=== PATIENT | female | born 1970 | race Caucasian/White ===

== ENCOUNTER 2020-07-26 09:29 | Emergency (ER) | payer MEDICARE, OTHER ==
[~2020-07-26 09:29] MED LIST: 3IN1 COMMODE; BENTYL10 MG PO; CIPRO500 MG PO; CYMBALTA60 MG PO; DILAUDID2 M1 PO; DILAUDID2 MG PO; DULOXETINE HCL60 MG PO; FENTANYL 25 M1 PATCH TD; FENTANYL TD; GABAPENTIN300 MG PO; GEMFIBROZIL600 MG PO; HUMALOG100 UNIT/1 SC; HYDROMORPHONE HC2 MG PO; KEFLEX250 MG PO; LEVAQUIN500 MG PO; LEVAQUIN750 MG PO; LEVEMIR DO100 UNITS/ SC; LOPID600 MG PO; LOPRESSOR50 MG PO; MAG-OXIDE 400M400 MG PO; MELOXICAM15 MG PO; NEURONTIN300 MG PO; NEXIUM40 MG PO; NOVOLOG DO100 UNIT/M SC; NOVOLOG DO100 UNIT/M SQ; OMEPRAZOLE40 MG PO; PHENERGAN25 M1 PO; PRILOSEC20 MG PO; PROMETHEGA12.5 MG/SU PR; PYRIDIUM100 MG PO; TRESIBA FL100 UNIT/1 SC; VASCEPA1 GM PO; ZOLOFT100 MG PO; [UNRECOGNIZED DRUG - OTHER] SC
[2020-07-26 10:11] LABS: BASOPHIL 0.3 % (0-2); EOSINOPHIL 0.4 % (0-5); HCT 39.4 % (37.0-47.0); HGB 12.6 g/dl (12.5-16.0); LYMPHOCYTE 7.9 % (15-48); MCH 28.3 pg (25.0-31.0); MCV 88.3 fL (78.0-100.0); MONOCYTE 7.2 % (0-12); MPV 10.2 fL (6.0-9.5); NEUTROPHIL 83.8 % (41-80); NRBC 0; PLT 156 K/uL (150-400); RBC 4.46 M/uL (4.20-5.40); RDW 13.1 % (11.5-14.0); WBC 11.7 K/uL (4.0-10.5)
[2020-07-26 10:32] LABS: ALBUMIN 3.5 g/dL (3.4-5.0); BILIRUBIN - TOTAL 0.7 mg/dL (0.2-1.0); CREATININE 0.56 mg/dL (0.51-0.95); GLOBULIN (CALCULATION) 4.4 g/dL; POTASSIUM 4.3 mmol/L (3.5-5.1); TOTAL PROTEIN 7.9 g/dL (6.4-8.2)
[2020-07-26] MEDS ORDERED: PROMETHAZINE HC25 MG PR (11:16)
== END 2020-07-26 11:52 | disposition home or self-care (01) ==
LOC: FER 09:29
PROVIDERS: Emergency Medicine
DX: R10.13 Epigastric pain (principal); R11.2 Nausea with vomiting, unspecified; E11.9 Type 2 diabetes mellitus without complications; Z87.19 Personal history of other diseases of the digestive system; Z90.49 Acquired absence of other specified parts of digestive tract; Z88.4 Allergy status to anesthetic agent; Z20.822 Contact with and (suspected) exposure to COVID-19
CPT/HCPCS: 36415; 80053; 82150; 83690; 85025; J0780; J1170; J1885; J2270; J2550; J7030; U0002

== ENCOUNTER 2020-10-08 19:37 | Inpatient (IN) | payer MEDICARE, OTHER ==
[~2020-10-08] VITALS: Ht 160 cm; Wt 79.0 kg
[~2020-10-08 19:37] MED LIST changes: +PROMETHAZINE HC25 MG PR
[2020-10-08 20:37] LABS: BASOPHIL 0.9 % (0-2); EOSINOPHIL 1.7 % (0-5); HCT 39.4 % (37.0-47.0); HGB 12.3 g/dl (12.5-16.0); LYMPHOCYTE 37.9 % (15-48); MCH 28.9 pg (25.0-31.0); MCHC 31.2 g/dL (32.0-36.0); MCV 92.5 fL (78.0-100.0); MONOCYTE 7.2 % (0-12); MPV 10.2 fL (6.0-9.5); NEUTROPHIL 51.3 % (41-80); NRBC 0; PLT 227 K/uL (150-400); RBC 4.26 M/uL (4.20-5.40); RDW 12.8 % (11.5-14.0); WBC 10.1 K/uL (4.0-10.5)
[2020-10-08 20:38] LABS: BILIRUBIN NEGATIVE (NEGATIVE); BLOOD NEGATIVE Ery/uL (NEGATIVE); CLARITY CLEAR (CLEAR); COLOR YELLOW (YELLOW); GLUCOSE (U) 3+ mg/dL (NORMAL); LEUKOCYTES NEGATIVE Leu/uL (NEGATIVE); NITRITE NEGATIVE (NEGATIVE); PROTEIN NEGATIVE (NEGATIVE); UROBILINOGEN 0.2 mg/dL (0.2-1.0); pH 5.5 (5.0-9.0)
[2020-10-08 20:50] LABS: ALBUMIN 3.4 g/dL (3.4-5.0); BILIRUBIN - TOTAL 0.3 mg/dL (0.2-1.0); BUN/CREAT RATIO (CALC) 15.3 RATIO; CREATININE 0.72 mg/dL (0.51-0.95); GLOBULIN (CALCULATION) 4.1 g/dL; POTASSIUM 4.9 mmol/L (3.5-5.1); TOTAL PROTEIN 7.5 g/dL (6.4-8.2)
[2020-10-08 20:58] LABS: LACTIC ACID 6.1 mmol/L (0.4-1.9)
[2020-10-09] MEDS ORDERED: JARDIANCE25 MG PO (02:02)
[2020-10-09] MEDS ORDERED: METFORMIN HCL500 MG PO (02:02)
[2020-10-09 02:24] LABS: CORONAVIRUS 2019 SARS-COV-2 NEGATIVE (NEGATIVE); INFLUENZA A NAA NEGATIVE (NEGATIVE)
[2020-10-09 06:28] LABS: BASOPHIL 0.8 % (0-2); EOSINOPHIL 2.3 % (0-5); HCT 37.1 % (37.0-47.0); HGB 11.5 g/dl (12.5-16.0); LYMPHOCYTE 30.2 % (15-48); MCH 29.1 pg (25.0-31.0); MCV 93.9 fL (78.0-100.0); MONOCYTE 7.1 % (0-12); NEUTROPHIL 58.8 % (41-80); NRBC 0; PLT 186 K/uL (150-400); RBC 3.95 M/uL (4.20-5.40); RDW 12.9 % (11.5-14.0); WBC 8.9 K/uL (4.0-10.5)
[2020-10-09 06:54] LABS: ALBUMIN 3.1 g/dL (3.4-5.0); BILIRUBIN - TOTAL 0.3 mg/dL (0.2-1.0); CREATININE 0.69 mg/dL (0.51-0.95); GLOBULIN (CALCULATION) 3.7 g/dL; POTASSIUM 4.7 mmol/L (3.5-5.1); TOTAL PROTEIN 6.8 g/dL (6.4-8.2)
[2020-10-10 05:26] LABS: BASOPHIL 0.7 % (0-2); EOSINOPHIL 2.1 % (0-5); HCT 33.4 % (37.0-47.0); LYMPHOCYTE 30.7 % (15-48); MCH 29.3 pg (25.0-31.0); MCHC 31.1 g/dL (32.0-36.0); MCV 94.1 fL (78.0-100.0); MONOCYTE 5.8 % (0-12); MPV 9.5 fL (6.0-9.5); NEUTROPHIL 59.9 % (41-80); NRBC 0; PLT 148 K/uL (150-400); RBC 3.55 M/uL (4.20-5.40); RDW 12.6 % (11.5-14.0); WBC 8.4 K/uL (4.0-10.5)
[2020-10-10 05:27] LABS: HGB 10.4 g/dl (12.5-16.0)
[2020-10-10 05:43] LABS: BUN/CREAT RATIO (CALC) 17.7 RATIO; CREATININE 0.62 mg/dL (0.51-0.95); MAGNESIUM 1.6 mg/dL (1.8-2.4); POTASSIUM 4.5 mmol/L (3.5-5.1)
[2020-10-11 04:52] LABS: BASOPHIL 0.9 % (0-2); EOSINOPHIL 4.4 % (0-5); HCT 34.8 % (37.0-47.0); LYMPHOCYTE 34.5 % (15-48); MCH 29.4 pg (25.0-31.0); MCHC 31.6 g/dL (32.0-36.0); MONOCYTE 6.7 % (0-12); MPV 9.4 fL (6.0-9.5); NEUTROPHIL 51.5 % (41-80); NRBC 0; PLT 147 K/uL (150-400); RBC 3.74 M/uL (4.20-5.40); RDW 12.4 % (11.5-14.0); WBC 6.5 K/uL (4.0-10.5)
[2020-10-11 05:09] LABS: BUN/CREAT RATIO (CALC) 15.8 RATIO; CREATININE 0.57 mg/dL (0.51-0.95); MAGNESIUM 1.4 mg/dL (1.8-2.4); POTASSIUM 4.4 mmol/L (3.5-5.1)
[2020-10-13 06:53] LABS: BASOPHIL 0.9 % (0-2); EOSINOPHIL 6.7 % (0-5); HCT 33.4 % (37.0-47.0); HGB 10.8 g/dl (12.5-16.0); LYMPHOCYTE 33.5 % (15-48); MCH 29.2 pg (25.0-31.0); MCHC 32.3 g/dL (32.0-36.0); MCV 90.3 fL (78.0-100.0); MONOCYTE 7.1 % (0-12); MPV 9.2 fL (6.0-9.5); NEUTROPHIL 49.6 % (41-80); NRBC 0; PLT 159 K/uL (150-400); RDW 12.7 % (11.5-14.0); WBC 5.5 K/uL (4.0-10.5)
[2020-10-13 07:23] LABS: ALBUMIN 2.9 g/dL (3.4-5.0); BILIRUBIN - TOTAL 0.4 mg/dL (0.2-1.0); BUN/CREAT RATIO (CALC) 11.8 RATIO; CREATININE 0.51 mg/dL (0.51-0.95); GLOBULIN (CALCULATION) 3.7 g/dL; POTASSIUM 4.1 mmol/L (3.5-5.1); TOTAL PROTEIN 6.6 g/dL (6.4-8.2)
[2020-10-14 05:07] LABS: BASOPHIL 0.8 % (0-2); EOSINOPHIL 5.2 % (0-5); HCT 31.9 % (37.0-47.0); HGB 10.3 g/dl (12.5-16.0); LYMPHOCYTE 43.2 % (15-48); MCH 29.5 pg (25.0-31.0); MCHC 32.3 g/dL (32.0-36.0); MCV 91.4 fL (78.0-100.0); MONOCYTE 6.4 % (0-12); MPV 9.4 fL (6.0-9.5); NEUTROPHIL 42.8 % (41-80); NRBC 0; PLT 136 K/uL (150-400); RBC 3.49 M/uL (4.20-5.40); RDW 12.9 % (11.5-14.0)
[2020-10-14 05:22] LABS: ALBUMIN 2.8 g/dL (3.4-5.0); BILIRUBIN - TOTAL 0.4 mg/dL (0.2-1.0); BUN/CREAT RATIO (CALC) 8.3 RATIO; CREATININE 0.48 mg/dL (0.51-0.95); GLOBULIN (CALCULATION) 3.3 g/dL; MAGNESIUM 1.2 mg/dL (1.8-2.4); POTASSIUM 3.8 mmol/L (3.5-5.1); TOTAL PROTEIN 6.1 g/dL (6.4-8.2)
[2020-10-14] MEDS ORDERED: ERY-TAB250 MG PO (14:42)
== END 2020-10-14 16:42 | disposition home or self-care (01) | DRG 74 ==
LOC: FER 19:37 → FMS 10-09 00:47
PROVIDERS: Emergency Medicine; Internal Medicine; Nurse Practitioner; Nurse Practitioner Family; Student in an Organized Health Care Education/Training Program; ADMIT Internal Medicine
PROC: 0DB38ZX Excision of Lower Esophagus, Via Natural or Artificial Opening Endoscopic, Diagnostic (ICD-10-PCS; 2020-10-13)
PROC: 0DB98ZX Excision of Duodenum, Via Natural or Artificial Opening Endoscopic, Diagnostic (ICD-10-PCS; principal; 2020-10-13 10:00)
PROC: 0DB68ZX Excision of Stomach, Via Natural or Artificial Opening Endoscopic, Diagnostic (ICD-10-PCS; 2020-10-13 10:00)
DX: E10.43 Type 1 diabetes mellitus with diabetic autonomic (poly)neuropathy (principal); K86.1 Other chronic pancreatitis; K31.84 Gastroparesis; M79.7 Fibromyalgia; D50.9 Iron deficiency anemia, unspecified; I10 Essential (primary) hypertension; Z20.822 Contact with and (suspected) exposure to COVID-19; E78.5 Hyperlipidemia, unspecified; E10.65 Type 1 diabetes mellitus with hyperglycemia; E86.0 Dehydration; K31.7 Polyp of stomach and duodenum; K29.80 Duodenitis without bleeding; K83.8 Other specified diseases of biliary tract; K44.9 Diaphragmatic hernia without obstruction or gangrene; J45.909 Unspecified asthma, uncomplicated; Z88.4 Allergy status to anesthetic agent; Z90.49 Acquired absence of other specified parts of digestive tract; Z93.0 Tracheostomy status; Z95.828 Presence of other vascular implants and grafts; Z87.891 Personal history of nicotine dependence
CPT/HCPCS: 36415; 71045; 74018; 74240; 80048; 80053; 81003; 82009; 82150; 82962; 83036; 83605; 83690; 83735; 84145; 85025; 87040; 88305; 88341; 88342; C9113; G0378; J0780; J1170; J1364; J1642; J1650; J2250; J2270; J2405; J2543; J2550; J2704; J3475; J3480; J7030; J7120; Q0169; Q9967; U0002

== ENCOUNTER 2020-10-23 21:02 | Day surgery (SDCO) | payer MEDICARE, OTHER ==
[~2020-10-23 21:02] MED LIST changes: +ERY-TAB250 MG PO; +JARDIANCE25 MG PO; +METFORMIN HCL500 MG PO
[2020-10-23 22:10] LABS: BASOPHIL 1.8 % (0-2); BILIRUBIN NEGATIVE (NEGATIVE); BLOOD NEGATIVE Ery/uL (NEGATIVE); CLARITY CLEAR (CLEAR); COLOR YELLOW (YELLOW); EOSINOPHIL 2.2 % (0-5); GLUCOSE (U) 3+ mg/dL (NORMAL); HGB 12.5 g/dl (12.5-16.0); LEUKOCYTES NEGATIVE Leu/uL (NEGATIVE); LYMPHOCYTE 35.5 % (15-48); MCHC 33.8 g/dL (32.0-36.0); MCV 88.7 fL (78.0-100.0); MONOCYTE 10.7 % (0-12); MPV 10.9 fL (6.0-9.5); NEUTROPHIL 48.9 % (41-80); NITRITE NEGATIVE (NEGATIVE); PLT 230 K/uL (150-400); PROTEIN NEGATIVE (NEGATIVE); RBC 4.17 M/uL (4.20-5.40); RDW 13.2 % (11.5-14.0); UROBILINOGEN 0.2 mg/dL (0.2-1.0); WBC 10.3 K/uL (4.0-10.5); pH 5.5 (5.0-9.0)
[2020-10-23 22:20] LABS: INR 0.92 (0.9-1.2); PROTHROMBIN TIME 11.7 SECONDS (11.4-13.6); PTT 24.4 SECONDS (22.2-34.7)
[2020-10-23 22:33] LABS: IRON % SATURATION 11.7 %SAT (20-50)
[2020-10-23 22:38] LABS: LACTIC ACID 3.4 mmol/L (0.4-1.9)
[2020-10-23 22:41] LABS: ALBUMIN 3.8 g/dL (3.4-5.0); BILIRUBIN - TOTAL 0.2 mg/dL (0.2-1.0); BUN/CREAT RATIO (CALC) 15.5 RATIO; CREATININE 0.97 mg/dL (0.51-0.95); MAGNESIUM 1.8 mg/dL (1.8-2.4); POTASSIUM 4.2 mmol/L (3.5-5.1); TOTAL PROTEIN 7.8 g/dL (6.4-8.2)
[2020-10-24] MEDS ORDERED: CYMBALTA 30MG C30 MG PO (02:15)
[2020-10-24] MEDS ORDERED: JARDIANCE25 MG PO (02:16)
[2020-10-24] MEDS ORDERED: NEURONTIN300 MG PO (02:16)
[2020-10-24] MEDS ORDERED: VASCEPA1 GM PO (02:17)
[2020-10-24] MEDS ORDERED: NOVOLOG DO100 UNIT/M SC (02:18)
[2020-10-24] MEDS ORDERED: METFORMIN HCL500 MG PO (02:19)
--- NOTE | 2020-10-24 04:38 | NUR ---
0315 R CHEST PAC ACCESSED BY MELANIE DUKESANVIL SEATING PRESS OPERATOR. NO BLOOD RETURN AFTER ACCESS.
[2020-10-24 07:20] LABS: BASOPHIL 1.1 % (0-2); EOSINOPHIL 3.2 % (0-5); HCT 35.7 % (37.0-47.0); HGB 11.4 g/dl (12.5-16.0); LYMPHOCYTE 46.4 % (15-48); MCH 29.2 pg (25.0-31.0); MCHC 31.9 g/dL (32.0-36.0); MCV 91.5 fL (78.0-100.0); MONOCYTE 9.3 % (0-12); MPV 10.2 fL (6.0-9.5); NEUTROPHIL 39.2 % (41-80); NRBC 0; PLT 189 K/uL (150-400); RDW 13.2 % (11.5-14.0); WBC 6.2 K/uL (4.0-10.5)
[2020-10-24 07:40] LABS: ALBUMIN 3.2 g/dL (3.4-5.0); BILIRUBIN - TOTAL 0.3 mg/dL (0.2-1.0); BUN/CREAT RATIO (CALC) 17.3 RATIO; CREATININE 0.75 mg/dL (0.51-0.95); GLOBULIN (CALCULATION) 3.4 g/dL; POTASSIUM 4.3 mmol/L (3.5-5.1); TOTAL PROTEIN 6.6 g/dL (6.4-8.2)
== END 2020-10-24 12:38 | disposition home or self-care (01) ==
LOC: FER 21:02 → FMS 10-24 00:52
PROVIDERS: Emergency Medicine; Nurse Practitioner; ADMIT Internal Medicine
DX: E10.43 Type 1 diabetes mellitus with diabetic autonomic (poly)neuropathy (principal); K31.84 Gastroparesis; K86.1 Other chronic pancreatitis; M79.7 Fibromyalgia; D50.9 Iron deficiency anemia, unspecified; I10 Essential (primary) hypertension; E78.5 Hyperlipidemia, unspecified; E86.0 Dehydration; E66.3 Overweight; Z68.28 Body mass index [BMI] 28.0-28.9, adult; Z87.891 Personal history of nicotine dependence; Z79.4 Long term (current) use of insulin; Z79.899 Other long term (current) drug therapy; Z88.4 Allergy status to anesthetic agent; Z20.822 Contact with and (suspected) exposure to COVID-19
CPT/HCPCS: 36415; 80053; 81003; 83540; 83550; 83605; 83690; 83735; 84145; 84443; 84484; 85025; 85610; 85730; C9113; G0378; J1170; J1650; J2405; J2550; J7030; Q9967; U0002

== ENCOUNTER 2020-11-29 21:03 | Inpatient (IN) | payer MEDICARE, OTHER ==
[~2020-11-29] VITALS: Ht 160 cm; Wt 77.2 kg
[~2020-11-29 21:03] MED LIST changes: +CYMBALTA 30MG C30 MG PO
[2020-11-29 21:46] LABS: BASOPHIL 0.6 % (0-2); EOSINOPHIL 1.4 % (0-5); HCT 33.8 % (37.0-47.0); HGB 11.7 g/dl (12.5-16.0); LYMPHOCYTE 37.8 % (15-48); MCH 30.5 pg (25.0-31.0); MCHC 34.6 g/dL (32.0-36.0); MONOCYTE 7.9 % (0-12); NEUTROPHIL 51.7 % (41-80); NRBC 0; PLT 180 K/uL (150-400); RBC 3.84 M/uL (4.20-5.40); RDW 12.3 % (11.5-14.0); WBC 6.3 K/uL (4.0-10.5)
[2020-11-29 22:10] LABS: LACTIC ACID 1.9 mmol/L (0.4-1.9)
[2020-11-29 22:14] LABS: ALBUMIN 3.2 g/dL (3.4-5.0); BILIRUBIN - TOTAL 0.5 mg/dL (0.2-1.0); BUN/CREAT RATIO (CALC) 14.5 RATIO; CREATININE 0.69 mg/dL (0.51-0.95); GLOBULIN (CALCULATION) 4.2 g/dL; POTASSIUM 4.1 mmol/L (3.5-5.1); TOTAL PROTEIN 7.4 g/dL (6.4-8.2)
[2020-11-30] MEDS ORDERED: NEURONTIN300 MG PO (03:15)
[2020-11-30] MEDS ORDERED: PRILOSEC20 MG PO (03:15)
[2020-11-30] MEDS ORDERED: METFORMIN HCL500 MG PO (03:16)
[2020-11-30] MEDS ORDERED: PHENERGAN25 M1 PO (03:17)
[2020-11-30] MEDS ORDERED: NOVOLOG VI100 UNIT/1 SC (03:18)
[2020-11-30] MEDS ORDERED: CYMBALTA 30MG C30 MG PO (03:18)
[2020-11-30] MEDS ORDERED: TOPROL XL 50 MG50 MG PO (03:19)
[2020-11-30] MEDS ORDERED: JARDIANCE25 MG PO (03:20)
--- NOTE | 2020-11-30 03:25 | NUR ---
0240 PT RECIEVED ADMIT FROM ED. PT DROWSY. PT ORIENTED TO CALL LIGHT. PT INSTRUCTED TO CALL FOR ASSISTANCE BEFORE GETTING OOB. VSS.
[2020-11-30 06:38] LABS: BASOPHIL 0.4 % (0-2); EOSINOPHIL 0.5 % (0-5); HCT 33.6 % (37.0-47.0); HGB 10.8 g/dl (12.5-16.0); LYMPHOCYTE 17.5 % (15-48); MCH 29.1 pg (25.0-31.0); MCHC 32.1 g/dL (32.0-36.0); MCV 90.6 fL (78.0-100.0); MONOCYTE 6.6 % (0-12); MPV 9.7 fL (6.0-9.5); NEUTROPHIL 74.5 % (41-80); NRBC 0; PLT 149 K/uL (150-400); RBC 3.71 M/uL (4.20-5.40); RDW 12.6 % (11.5-14.0); WBC 7.4 K/uL (4.0-10.5)
[2020-11-30 07:05] LABS: TOTAL CELL COUNT 100
[2020-11-30 07:10] LABS: EOSINOPHIL(M) 1 % (0-5); LYMPHOCYTE(M) 26 % (15-48); MONOCYTE(M) 10 % (0-12); NEUTROPHILS(M) 64 % (41-80); PLATELET ESTIMATE NORMAL; PLATELET MORPHOLOGY NORMAL
[2020-11-30 07:16] LABS: BUN/CREAT RATIO (CALC) 16.7 RATIO; CREATININE 0.54 mg/dL (0.51-0.95); MAGNESIUM 1.8 mg/dL (1.8-2.4); POTASSIUM 4.3 mmol/L (3.5-5.1)
[2020-11-30 10:30] LABS: RETICULOCYTE COUNT 1.8 % (1.0-2.0)
[2020-11-30 10:54] LABS: BILIRUBIN NEGATIVE (NEGATIVE); BLOOD TRACE-INTACT Ery/uL (NEGATIVE); CLARITY CLEAR (CLEAR); COLOR YELLOW (YELLOW); GLUCOSE (U) 3+ mg/dL (NORMAL); LEUKOCYTES NEGATIVE Leu/uL (NEGATIVE); NITRITE NEGATIVE (NEGATIVE); PROTEIN NEGATIVE (NEGATIVE); SPECIFIC GRAVITY 1.015 (1.001-1.030); UROBILINOGEN 0.2 mg/dL (0.2-1.0)
[2020-11-30 11:07] LABS: BACTERIA TRACE; URINARY WBC RARE; YEAST PRESENT
[2020-11-30 11:15] LABS: FOLIC ACID (SERUM) 16.3 ng/mL (8.6-58.9)
[2020-11-30 11:22] LABS: IRON % SATURATION 10.2 %SAT (20-50)
[2020-12-01 06:10] LABS: HCT 31.3 % (37.0-47.0); HGB 9.9 g/dl (12.5-16.0); MCH 29.3 pg (25.0-31.0); MCHC 31.6 g/dL (32.0-36.0); MCV 92.6 fL (78.0-100.0); MPV 9.9 fL (6.0-9.5); RBC 3.38 M/uL (4.20-5.40); RDW 12.3 % (11.5-14.0); WBC 5.6 K/uL (4.0-10.5)
[2020-12-01 06:23] LABS: BUN/CREAT RATIO (CALC) 14.3 RATIO; CREATININE 0.42 mg/dL (0.51-0.95); POTASSIUM 3.5 mmol/L (3.5-5.1)
[2020-12-01 06:28] LABS: MAGNESIUM 1.4 mg/dL (1.8-2.4)
[2020-12-02 08:32] LABS: ALBUMIN 2.9 g/dL (3.4-5.0); BILIRUBIN - TOTAL 0.6 mg/dL (0.2-1.0); BUN/CREAT RATIO (CALC) 12.8 RATIO; CREATININE 0.47 mg/dL (0.51-0.95); GLOBULIN (CALCULATION) 4.2 g/dL; MAGNESIUM 1.5 mg/dL (1.8-2.4); PHOSPHORUS 2.3 mg/dL (2.6-4.7); POTASSIUM 4.8 mmol/L (3.5-5.1); TOTAL PROTEIN 7.1 g/dL (6.4-8.2)
--- NOTE | 2020-12-02 18:55 | NUR ---
SPOKE TO PHARMACY ABOUT PUSHING IV PHENERGAN WITH RUNNING FLUIDS INSTEAD OF PIGGYBACK AND STATED OK
[2020-12-03 06:26] LABS: BUN/CREAT RATIO (CALC) 11.5 RATIO; CREATININE 0.52 mg/dL (0.51-0.95); MAGNESIUM 1.3 mg/dL (1.8-2.4); PHOSPHORUS 2.7 mg/dL (2.6-4.7); POTASSIUM 4.8 mmol/L (3.5-5.1)
--- NOTE | 2020-12-03 15:25 | NUR ---
12/03/20 Ms. Winter and her son share a home together. Ms. Winter reports that her son works 3rd shift and is frequently out of the home. She reports to be independent in the home and does not use DME. - Ms. Winter is under the care of Dr. Wheeler. She reports to have transportation to treatment. - Ms. Winter is supported by [facility]. She states she is able to meet her financial obligations. - Ms. Winter was provided with an [employer] brochure and name of Courtney Lawson for transportation assistance if needed.
[2020-12-04 06:16] LABS: BASOPHIL 1.1 % (0-2); EOSINOPHIL 5.1 % (0-5); HCT 34.4 % (37.0-47.0); HGB 10.9 g/dl (12.5-16.0); LYMPHOCYTE 33.3 % (15-48); MCH 28.7 pg (25.0-31.0); MCHC 31.7 g/dL (32.0-36.0); MCV 90.5 fL (78.0-100.0); MONOCYTE 8.5 % (0-12); MPV 9.2 fL (6.0-9.5); NEUTROPHIL 48.8 % (41-80); NRBC 0; PLT 162 K/uL (150-400); RDW 12.6 % (11.5-14.0); WBC 5.3 K/uL (4.0-10.5)
[2020-12-04 06:39] LABS: BUN/CREAT RATIO (CALC) 12.8 RATIO; CREATININE 0.47 mg/dL (0.51-0.95); MAGNESIUM 1.3 mg/dL (1.8-2.4); POTASSIUM 4.1 mmol/L (3.5-5.1)
[2020-12-04] MEDS ORDERED: NORCO 5-325 TA1 EACH PO (13:48)
== END 2020-12-04 15:19 | disposition home or self-care (01) | DRG 74 ==
LOC: FER 21:03 → FMS 11-30 01:54
PROVIDERS: Allergy & Immunology; Emergency Medicine Emergency Medical Services; Internal Medicine; Student in an Organized Health Care Education/Training Program; ADMIT Internal Medicine
DX: E11.43 Type 2 diabetes mellitus with diabetic autonomic (poly)neuropathy (principal); K86.1 Other chronic pancreatitis; N17.9 Acute kidney failure, unspecified; E83.42 Hypomagnesemia; K31.84 Gastroparesis; E86.0 Dehydration; E11.65 Type 2 diabetes mellitus with hyperglycemia; D3A.092 Benign carcinoid tumor of the stomach; I10 Essential (primary) hypertension; D50.9 Iron deficiency anemia, unspecified; M79.7 Fibromyalgia; Z20.822 Contact with and (suspected) exposure to COVID-19; E78.5 Hyperlipidemia, unspecified; E83.39 Other disorders of phosphorus metabolism; E53.8 Deficiency of other specified B group vitamins; Z90.49 Acquired absence of other specified parts of digestive tract; Z98.890 Other specified postprocedural states; Z95.828 Presence of other vascular implants and grafts; Z91.14 Patient's other noncompliance with medication regimen; Z88.4 Allergy status to anesthetic agent; Z87.891 Personal history of nicotine dependence; Z79.4 Long term (current) use of insulin; Z79.899 Other long term (current) drug therapy
CPT/HCPCS: 36415; 73564; 73610; 74022; 80048; 80053; 81001; 82570; 82607; 82746; 82962; 83036; 83497; 83540; 83550; 83605; 83690; 83735; 84100; 85025; 94010; 94760; C9113; J1170; J1364; J1642; J1650; J2550; J2916; J3420; J3475; J3480; J7030; J7050; Q0162; U0002

== ENCOUNTER 2020-12-07 13:50 | Inpatient (IN) | payer MEDICARE, OTHER ==
[~2020-12-07] VITALS: Ht 160 cm; Wt 69.1 kg
[~2020-12-07 13:50] MED LIST changes: +NORCO 5-325 TA1 EACH PO; +NOVOLOG VI100 UNIT/1 SC; +TOPROL XL 50 MG50 MG PO
[2020-12-07 14:47] LABS: BASOPHIL 0.5 % (0-2); EOSINOPHIL 0.1 % (0-5); HCT 36.8 % (37.0-47.0); HGB 11.7 g/dl (12.5-16.0); LYMPHOCYTE 10.6 % (15-48); MCH 29.4 pg (25.0-31.0); MCHC 31.8 g/dL (32.0-36.0); MCV 92.5 fL (78.0-100.0); MONOCYTE 10.3 % (0-12); MPV 10.1 fL (6.0-9.5); NEUTROPHIL 77.6 % (41-80); NRBC 0; PLT 161 K/uL (150-400); RBC 3.98 M/uL (4.20-5.40); RDW 13.4 % (11.5-14.0); WBC 18.5 K/uL (4.0-10.5)
[2020-12-07 15:00] LABS: INR 1.27 (0.9-1.2); PROTHROMBIN TIME 15.1 SECONDS (11.4-13.6)
[2020-12-07 15:02] LABS: D-DIMER 1.11 ug/mLFEU (0.00-0.41)
[2020-12-07 15:07] LABS: ALBUMIN 3.6 g/dL (3.4-5.0); BILIRUBIN - TOTAL 1.1 mg/dL (0.2-1.0); BUN/CREAT RATIO (CALC) 17.6 RATIO; CREATININE 0.68 mg/dL (0.51-0.95); GLOBULIN (CALCULATION) 4.3 g/dL; MAGNESIUM 1.7 mg/dL (1.8-2.4); POTASSIUM 3.6 mmol/L (3.5-5.1); TOTAL PROTEIN 7.9 g/dL (6.4-8.2)
[2020-12-07 15:28] LABS: LACTIC ACID 1.5 mmol/L (0.4-1.9)
--- NOTE | 2020-12-07 18:35 | NUR ---
RECEIVED FROM [employer] [employer]. REPORT FROM BOBBY
[2020-12-08 01:06] LABS: BUN/CREAT RATIO (CALC) 19.4 RATIO; CREATININE 0.67 mg/dL (0.51-0.95); PHOSPHORUS 3.7 mg/dL (2.6-4.7); POTASSIUM 4.9 mmol/L (3.5-5.1)
[2020-12-08 04:04] LABS: BILIRUBIN 2+ mg/dL (NEGATIVE); BLOOD TRACE-INTACT Ery/uL (NEGATIVE); CLARITY CLEAR (CLEAR); COLOR YELLOW (YELLOW); GLUCOSE (U) 2+ mg/dL (NORMAL); LEUKOCYTES NEGATIVE Leu/uL (NEGATIVE); NITRITE NEGATIVE (NEGATIVE); PROTEIN TRACE (LOW) mg/dL (NEGATIVE); SPECIFIC GRAVITY 1.025 (1.001-1.030); UROBILINOGEN 0.2 mg/dL (0.2-1.0)
[2020-12-08 05:41] LABS: BASOPHIL 0.5 % (0-2); EOSINOPHIL 0.2 % (0-5); HCT 33.6 % (37.0-47.0); HGB 10.5 g/dl (12.5-16.0); LYMPHOCYTE 11.9 % (15-48); MCH 29.2 pg (25.0-31.0); MCHC 31.3 g/dL (32.0-36.0); MCV 93.3 fL (78.0-100.0); MONOCYTE 9.2 % (0-12); MPV 9.7 fL (6.0-9.5); NEUTROPHIL 77.2 % (41-80); NRBC 0; PLT 168 K/uL (150-400); RDW 13.9 % (11.5-14.0); WBC 14.8 K/uL (4.0-10.5)
[2020-12-08 06:05] LABS: BILIRUBIN - TOTAL 0.6 mg/dL (0.2-1.0); BUN/CREAT RATIO (CALC) 22.8 RATIO; CREATININE 0.57 mg/dL (0.51-0.95); GLOBULIN (CALCULATION) 4.9 g/dL; MAGNESIUM 1.9 mg/dL (1.8-2.4); POTASSIUM 4.4 mmol/L (3.5-5.1); TOTAL PROTEIN 7.9 g/dL (6.4-8.2)
--- NOTE | 2020-12-08 15:27 | NUR ---
12/08/20 Ms. Winter and her son share a home together. Her son works shift superintendent. SHe does not use any DME. Ms. Winter is supported by [facility] and reports to be able to meet her financial obligations. - Ms. Winter reports to feel weak. She chose [facility] for nurging (diabetic education) and PT. She was educated to affliation. - A referral was made to [facility] via [facility] in anticipation of discharge on 12/10/20.
[2020-12-08 16:39] LABS: BUN/CREAT RATIO (CALC) 16.3 RATIO; CREATININE 0.49 mg/dL (0.51-0.95); POTASSIUM 3.9 mmol/L (3.5-5.1)
[2020-12-09 05:24] LABS: BASOPHIL 0.3 % (0-2); EOSINOPHIL 0.3 % (0-5); HCT 30.5 % (37.0-47.0); HGB 9.6 g/dl (12.5-16.0); LYMPHOCYTE 9.3 % (15-48); MCH 29.1 pg (25.0-31.0); MCHC 31.5 g/dL (32.0-36.0); MCV 92.4 fL (78.0-100.0); MONOCYTE 11.9 % (0-12); MPV 9.7 fL (6.0-9.5); NEUTROPHIL 77.3 % (41-80); NRBC 0; PLT 135 K/uL (150-400); WBC 11.7 K/uL (4.0-10.5)
[2020-12-09 05:48] LABS: BUN/CREAT RATIO (CALC) 14.9 RATIO; CREATININE 0.47 mg/dL (0.51-0.95); MAGNESIUM 1.6 mg/dL (1.8-2.4); POTASSIUM 3.3 mmol/L (3.5-5.1)
[2020-12-09 14:13] LABS: BUN/CREAT RATIO (CALC) 13.6 RATIO; CREATININE 0.44 mg/dL (0.51-0.95); POTASSIUM 3.7 mmol/L (3.5-5.1)
[2020-12-09 20:30] LABS: BUN/CREAT RATIO (CALC) 14.6 RATIO; CREATININE 0.48 mg/dL (0.51-0.95); POTASSIUM 3.8 mmol/L (3.5-5.1)
[2020-12-10 04:22] LABS: BASOPHIL 0.5 % (0-2); EOSINOPHIL 0.3 % (0-5); HCT 30.9 % (37.0-47.0); HGB 9.7 g/dl (12.5-16.0); LYMPHOCYTE 12.2 % (15-48); MCH 29.8 pg (25.0-31.0); MCHC 31.4 g/dL (32.0-36.0); MCV 95.1 fL (78.0-100.0); MONOCYTE 12.3 % (0-12); MPV 9.8 fL (6.0-9.5); NEUTROPHIL 73.6 % (41-80); NRBC 0; PLT 164 K/uL (150-400); RBC 3.25 M/uL (4.20-5.40); WBC 12.2 K/uL (4.0-10.5)
[2020-12-10 04:31] LABS: INR 1.28 (0.9-1.2); PROTHROMBIN TIME 15.2 SECONDS (11.4-13.6)
[2020-12-10 04:58] LABS: ALBUMIN 2.5 g/dL (3.4-5.0); BILIRUBIN - TOTAL 0.5 mg/dL (0.2-1.0); CREATININE 0.5 mg/dL (0.51-0.95); GLOBULIN (CALCULATION) 4.9 g/dL; POTASSIUM 3.9 mmol/L (3.5-5.1); TOTAL PROTEIN 7.4 g/dL (6.4-8.2)
[2020-12-10 12:09] LABS: CALCIUM, SERUM 7.9 mg/dL (8.7-10.2); PTH, INTACT 13 pg/mL (15-65)
[2020-12-10 13:05] LABS: BUN/CREAT RATIO (CALC) 13.5 RATIO; CREATININE 0.52 mg/dL (0.51-0.95); POTASSIUM 3.4 mmol/L (3.5-5.1)
--- NOTE | 2020-12-10 16:29 | NUR ---
1550 PT WAS ORDERED A PICC LINE, DR. NINA SAID THAT A MIDLINE WAS OK. PROCEDURE WAS EXPLAINED TO PATIENT, PATIENT AGREED TO PROCEDURE. PT WAS PREPPED AND DRAPED IN STERILE FASHION. THE PT'S LEFT UPPER ARM, BAISILIC VEIN WAS VIUALIZED USING THE SITE RITE #6 US MACHINE. A 21 GAUGE GUIDE NEEDLE WAS USED. GOOD BLOOD RETURN WAS NOTED. THE GUIDE WIRETHREADED EASILY.(LIDOCAINE 1% WAS USED TO NUMB THE AREA PRIOR TO INSERTION OF THE GUIDE NEEDLE.) THE NEEDLE WAS REMOVED AND THE MIDLINE CATHETER WAS PLACED OVER THE WIRE. THE WIRE AND SHEATH WERE REMOVED. GOOD BLOOD RETURN WAS NOTED. A CONNECTOR WAS FLUSHED AND PLACED OVER THE END OF THE CATHETER. A STAT LOCK WAS PLACED ON THE CATHETER AND A BIOPATCH WAS PLACED ON TOP OF THE INSERTION SITE. A STERILE TEGADERM WAS PLACED OVER THE MIDLINE CATHETER. PT TOLERATED THE PROCEDURE WELL. PT HAS A 20 GAUGE 10 CM POWERGLIDE MIDLINE CATHETER. GOOD FOR 29 DAYS. THIS IS NOT A CENTRAL LINE. REPORT WAS GIVEN TO ENMANUEL ALMAGUER R.N. IN ICU. THE PATIENT'S BED WAS LOWERED TO THE FLOOR WITH 3 SIDERAILS UP. CALL LIGHT WITHIN REACH. .
[2020-12-10 22:28] LABS: BUN/CREAT RATIO (CALC) 13.7 RATIO; CREATININE 0.51 mg/dL (0.51-0.95); POTASSIUM 2.8 mmol/L (3.5-5.1)
[2020-12-11 05:20] LABS: BASOPHIL 0.6 % (0-2); EOSINOPHIL 0.4 % (0-5); HCT 26.8 % (37.0-47.0); HGB 8.6 g/dl (12.5-16.0); LYMPHOCYTE 11.3 % (15-48); MCH 29.5 pg (25.0-31.0); MCHC 32.1 g/dL (32.0-36.0); MCV 91.8 fL (78.0-100.0); MONOCYTE 12.3 % (0-12); MPV 9.5 fL (6.0-9.5); NEUTROPHIL 73.5 % (41-80); NRBC 0; PLT 144 K/uL (150-400); RBC 2.92 M/uL (4.20-5.40); RDW 14.2 % (11.5-14.0); WBC 8.3 K/uL (4.0-10.5)
[2020-12-11 05:35] LABS: BUN/CREAT RATIO (CALC) 11.1 RATIO; CREATININE 0.54 mg/dL (0.51-0.95); MAGNESIUM 1.5 mg/dL (1.8-2.4); POTASSIUM 3.4 mmol/L (3.5-5.1)
[2020-12-11 09:27] LABS: BILIRUBIN NEGATIVE (NEGATIVE); BLOOD 2+ Ery/uL (NEGATIVE); CLARITY CLEAR (CLEAR); COLOR YELLOW (YELLOW); GLUCOSE (U) 2+ mg/dL (NORMAL); LEUKOCYTES NEGATIVE Leu/uL (NEGATIVE); NITRITE NEGATIVE (NEGATIVE); PROTEIN TRACE (LOW) mg/dL (NEGATIVE); SPECIFIC GRAVITY 1.025 (1.001-1.030); UROBILINOGEN 0.2 mg/dL (0.2-1.0); pH 5.5 (5.0-9.0)
[2020-12-11 09:47] LABS: URINARY WBC RARE
[2020-12-11 12:25] LABS: BUN/CREAT RATIO (CALC) 16.3 RATIO; CREATININE 0.49 mg/dL (0.51-0.95); POTASSIUM 3.1 mmol/L (3.5-5.1)
--- NOTE | 2020-12-11 17:02 | NUR ---
1635 MIDLINE REORDERED, PATIENT PULLED THE FIRST ONE OUT 12/10/20. PT PREPPED AND DRAPED IN STERILE FASHION. THE PT'S LEFT UPPER ARM BASILIC VEIN WAS VISUALIZED USING THE STIE RITE #6 US MACHINE. A 21 GAUGE GUIDE NEEDLE WAS USED. GOOD BLOOD RETURN WAS NOTED. THE GUIDE WIRE THREADED EASILY. THE NEEDLE WAS REMOVED AND THE MIDLINE CATHETER WAS PLACED OVER THE WIRE. THE WIRE AND SHEATH WERE REMOVED. GOOD BLOOD RETURN WAS NOTED. A CONNECTOR WAS FLUSHED AND PLACED OVER THE END OF THE CATHETER. A STAT LOCK WAS PLACED ON THE CATHETER AND A BIOPATCH WAS PLACED ON TOPOF THE INSERTION SITE. A STERILE TEGADERM WAS PLACED OVER THE MIDLINE CATHETER. PT TOLERATED THE PROCEDURE WELL. PT HAS A 20 G 10 CM POWERGLIDE MIDLINE CATHETER. GOOD FOR 29 DAYS. THIS IS NOT A CENTRAL LINE. REPORT WAS GIVEN TO CRYSTAL CYR RN IN ICU. THE PATIENT'S BED WAS LOWERED TO THE GROUND SIDE RAILS UP X4. RESTARINTS REMAIN ON WRISTS BEFORE PROCEDURE.
[2020-12-11 21:08] LABS: CREATININE 0.46 mg/dL (0.51-0.95); POTASSIUM 2.9 mmol/L (3.5-5.1)
[2020-12-12 07:10] LABS: BUN/CREAT RATIO (CALC) 5.7 RATIO; CREATININE 0.35 mg/dL (0.51-0.95); MAGNESIUM 1.5 mg/dL (1.8-2.4); POTASSIUM 2.7 mmol/L (3.5-5.1)
[2020-12-12 07:24] LABS: PHOSPHORUS 0.5 mg/dL (2.6-4.7)
[2020-12-12 08:01] LABS: BILIRUBIN NEGATIVE (NEGATIVE); BLOOD 2+ Ery/uL (NEGATIVE); CLARITY CLEAR (CLEAR); COLOR YELLOW (YELLOW); GLUCOSE (U) 3+ mg/dL (NORMAL); LEUKOCYTES NEGATIVE Leu/uL (NEGATIVE); NITRITE NEGATIVE (NEGATIVE); PROTEIN NEGATIVE (NEGATIVE); UROBILINOGEN 0.2 mg/dL (0.2-1.0)
[2020-12-12 08:07] LABS: URINARY WBC RARE
[2020-12-12 16:23] LABS: BUN/CREAT RATIO (CALC) 2.7 RATIO; CREATININE 0.37 mg/dL (0.51-0.95); MAGNESIUM 1.8 mg/dL (1.8-2.4); PHOSPHORUS 2.3 mg/dL (2.6-4.7); POTASSIUM 3.2 mmol/L (3.5-5.1)
--- NOTE | 2020-12-12 18:27 | NUR ---
FOUND DOBHOFF ON FLOOR. DR. NINA NOTIFIED, INSTRUCTED TO PLACE NEW DOBHOFF
[2020-12-12 22:13] LABS: ALBUMIN 1.9 g/dL (3.4-5.0); BUN/CREAT RATIO (CALC) 2.8 RATIO; CREATININE 0.36 mg/dL (0.51-0.95); PHOSPHORUS 2.3 mg/dL (2.6-4.7); POTASSIUM 3.3 mmol/L (3.5-5.1)
[2020-12-13 05:14] LABS: BASOPHIL 0.6 % (0-2); EOSINOPHIL 1.8 % (0-5); HCT 26.5 % (37.0-47.0); HGB 8.8 g/dl (12.5-16.0); LYMPHOCYTE 32.7 % (15-48); MCHC 33.2 g/dL (32.0-36.0); MONOCYTE 11.5 % (0-12); MPV 9.1 fL (6.0-9.5); NEUTROPHIL 52.4 % (41-80); NRBC 0; PLT 154 K/uL (150-400); RBC 3.03 M/uL (4.20-5.40); RDW 14.1 % (11.5-14.0); WBC 5.1 K/uL (4.0-10.5)
[2020-12-13 05:25] LABS: MCV 87.5 fL (78.0-100.0)
[2020-12-13 05:47] LABS: ALBUMIN 1.8 g/dL (3.4-5.0); BUN/CREAT RATIO (CALC) 2.6 RATIO; CREATININE 0.38 mg/dL (0.51-0.95); MAGNESIUM 2.1 mg/dL (1.8-2.4); PHOSPHORUS 1.7 mg/dL (2.6-4.7); POTASSIUM 3.6 mmol/L (3.5-5.1)
[2020-12-13 13:17] LABS: BUN/CREAT RATIO (CALC) 5.9 RATIO; CREATININE 0.34 mg/dL (0.51-0.95)
[2020-12-13 13:46] LABS: POTASSIUM 5.1 mmol/L (3.5-5.1)
[2020-12-13 20:29] LABS: BUN/CREAT RATIO (CALC) 11.9 RATIO; CREATININE 0.42 mg/dL (0.51-0.95); POTASSIUM 4.4 mmol/L (3.5-5.1)
[2020-12-14 05:41] LABS: BUN/CREAT RATIO (CALC) 18.6 RATIO; CREATININE 0.43 mg/dL (0.51-0.95); MAGNESIUM 1.6 mg/dL (1.8-2.4); PHOSPHORUS 3.7 mg/dL (2.6-4.7); POTASSIUM 4.7 mmol/L (3.5-5.1)
[2020-12-14 17:08] LABS: BUN/CREAT RATIO (CALC) 23.3 RATIO; CREATININE 0.43 mg/dL (0.51-0.95); POTASSIUM 4.5 mmol/L (3.5-5.1)
[2020-12-15 06:02] LABS: BASOPHIL 0.7 % (0-2); HCT 26.2 % (37.0-47.0); HGB 8.6 g/dl (12.5-16.0); LYMPHOCYTE 34.9 % (15-48); MCH 29.8 pg (25.0-31.0); MCHC 32.8 g/dL (32.0-36.0); MCV 90.7 fL (78.0-100.0); MPV 9.4 fL (6.0-9.5); NEUTROPHIL 43.9 % (41-80); NRBC 0.7; PLT 168 K/uL (150-400); RBC 2.89 M/uL (4.20-5.40); RDW 13.6 % (11.5-14.0); WBC 4.2 K/uL (4.0-10.5)
[2020-12-15 06:08] LABS: BUN/CREAT RATIO (CALC) 21.6 RATIO; CREATININE 0.51 mg/dL (0.51-0.95); MAGNESIUM 1.9 mg/dL (1.8-2.4); PHOSPHORUS 5.6 mg/dL (2.6-4.7); POTASSIUM 4.4 mmol/L (3.5-5.1)
--- NOTE | 2020-12-15 14:26 | NUR ---
PATIENT HAS BEEN CONFUSED TODAY, HALLUCINATING. FORGETTING HER IS AND CONFUSED THINKING HER SON IS IN [place] AND SHE NEEDS TO GO GET HIM. CONTINUES TO GET OOB WANTING TO GO OUT OF ROOM LOOKING FOR FAMILY. DROWSY BUT WHEN SHE STARTS TO CLOSE HER EYES SHE WILL START TO TALK AND ARGUE ABOUT THINGS WITH STAFF. VERY DIFFICULT TO REDIRECT
[2020-12-16 07:00] LABS: BASOPHIL 0.8 % (0-2); EOSINOPHIL 4.2 % (0-5); HCT 27.5 % (37.0-47.0); HGB 8.8 g/dl (12.5-16.0); MCH 29.2 pg (25.0-31.0); MCV 91.4 fL (78.0-100.0); MPV 9.2 fL (6.0-9.5); NEUTROPHIL 45.5 % (41-80); NRBC 0.8; PLT 175 K/uL (150-400); RBC 3.01 M/uL (4.20-5.40); RDW 13.8 % (11.5-14.0); WBC 5.3 K/uL (4.0-10.5)
[2020-12-16 07:04] LABS: ALBUMIN 2.1 g/dL (3.4-5.0); BILIRUBIN - TOTAL 0.2 mg/dL (0.2-1.0); BUN/CREAT RATIO (CALC) 16.9 RATIO; CREATININE 0.59 mg/dL (0.51-0.95); GLOBULIN (CALCULATION) 4.7 g/dL; MAGNESIUM 1.9 mg/dL (1.8-2.4); POTASSIUM 4.5 mmol/L (3.5-5.1); TOTAL PROTEIN 6.8 g/dL (6.4-8.2)
--- NOTE | 2020-12-17 15:55 | NUR ---
12/17/20 Dr. Villatoro reports that patient will require IV Rocephin 1 gram 1 time per day for 3 weeks following discharge. Option were discussed with Ms. Winter. She prefers infusion through [facility].
[2020-12-18 05:59] LABS: BASOPHIL 0.6 % (0-2); HCT 27.2 % (37.0-47.0); HGB 8.5 g/dl (12.5-16.0); LYMPHOCYTE 28.5 % (15-48); MCH 29.1 pg (25.0-31.0); MCHC 31.3 g/dL (32.0-36.0); MCV 93.2 fL (78.0-100.0); MONOCYTE 10.5 % (0-12); MPV 10.2 fL (6.0-9.5); NEUTROPHIL 49.3 % (41-80); NRBC 0.6; PLT 180 K/uL (150-400); RBC 2.92 M/uL (4.20-5.40); RDW 14.2 % (11.5-14.0); WBC 6.5 K/uL (4.0-10.5)
[2020-12-18 06:14] LABS: BUN/CREAT RATIO (CALC) 19.4 RATIO; CREATININE 0.62 mg/dL (0.51-0.95); MAGNESIUM 1.7 mg/dL (1.8-2.4); POTASSIUM 4.6 mmol/L (3.5-5.1)
[2020-12-19] MEDS ORDERED: ROCEPHIN 22 GM/50 ML IV (08:19)
[2020-12-19] MEDS ORDERED: ERY-TAB250 MG PO (08:19)
--- NOTE | 2020-12-19 12:38 | NUR ---
PATIENT DISCHARGED BY WHEELCHAIR. VERBALIZED UNDERSTANDING OF DISCHARGE INSTRUCTIONS. PORT A CATH FLUSHED, MIDLINE DCD. [facility] TO FOLLOW UP WITH PATIENT TOMMORROW. QUESTIONS ANSWERED
--- NOTE | 2020-12-19 16:51 | NUR ---
12/19/20 Ms. Winter was discharged home with IV infusion arranged through [facility]. Pt will have zero co-pay.
== END 2020-12-19 12:30 | disposition home health service (06) | DRG 871 ==
LOC: FER 13:50 → FICU 17:38 → FTCU 12-15 10:43
PROVIDERS: Allergy & Immunology Allergy; Emergency Medicine; Internal Medicine; Nurse Practitioner; ADMIT Internal Medicine
PROC: 05HY33Z Insertion of Infusion Device into Upper Vein, Percutaneous Approach (ICD-10-PCS; 2020-12-10)
PROC: 0DH67UZ Insertion of Feeding Device into Stomach, Via Natural or Artificial Opening (ICD-10-PCS; 2020-12-11)
PROC: 0F913ZX Drainage of Right Lobe Liver, Percutaneous Approach, Diagnostic (ICD-10-PCS; principal; 2020-12-12)
DX: A41.9 Sepsis, unspecified organism (principal); E11.10 Type 2 diabetes mellitus with ketoacidosis without coma; K75.0 Abscess of liver; E87.2 Acidosis; C16.9 Malignant neoplasm of stomach, unspecified; K86.1 Other chronic pancreatitis; E46 Unspecified protein-calorie malnutrition; B96.1 Klebsiella pneumoniae [K. pneumoniae] as the cause of diseases classified elsewhere; T73.0XXA Starvation, initial encounter; D72.829 Elevated white blood cell count, unspecified; E11.43 Type 2 diabetes mellitus with diabetic autonomic (poly)neuropathy; E83.42 Hypomagnesemia; K31.84 Gastroparesis; E87.8 Other disorders of electrolyte and fluid balance, not elsewhere classified; M79.7 Fibromyalgia; D63.8 Anemia in other chronic diseases classified elsewhere; D50.9 Iron deficiency anemia, unspecified; I10 Essential (primary) hypertension; E78.5 Hyperlipidemia, unspecified; Z90.49 Acquired absence of other specified parts of digestive tract; Z79.899 Other long term (current) drug therapy; Z79.4 Long term (current) use of insulin; Z80.8 Family history of malignant neoplasm of other organs or systems; Z84.1 Family history of disorders of kidney and ureter; Z87.891 Personal history of nicotine dependence; K76.9 Liver disease, unspecified; Z88.8 Allergy status to other drugs, medicaments and biological substances; R00.0 Tachycardia, unspecified; E87.6 Hypokalemia; R81 Glycosuria; E83.39 Other disorders of phosphorus metabolism; R41.0 Disorientation, unspecified; R53.81 Other malaise; R35.8 Other polyuria; E86.0 Dehydration; Z20.822 Contact with and (suspected) exposure to COVID-19
CPT/HCPCS: 36415; 36600; 70450; 71045; 71275; 74018; 74183; 76705; 80048; 80053; 80069; 81001; 82009; 82024; 82310; 82530; 82803; 82941; 82962; 83003; 83036; 83605; 83690; 83735; 83935; 83970; 84100; 84300; 84443; 84484; 85025; 85379; 85610; 87040; 87070; 87075; 87077; 87186; 93005; 97110; 97116; 97162; 97166; 97530-GP; 97535; A9579; C1751; C9113; J0696; J0780; J1170; J1200; J1364; J1642; J1650; J2270; J2405; J2543; J2550; J2597; J2765; J3475; J3480; J7030; J7040; J7070; J7120; J7121; Q0169; Q9967; U0002

== ENCOUNTER 2021-01-04 05:30 | Day surgery (SDCO) | payer MEDICARE, OTHER ==
[~2021-01-04] VITALS: Ht 160 cm; Wt 70.8 kg
[~2021-01-04 05:30] MED LIST changes: +ROCEPHIN 22 GM/50 ML IV
[2021-01-04 06:32] LABS: BASOPHIL 0.5 % (0-2); EOSINOPHIL 2.6 % (0-5); HCT 33.8 % (37.0-47.0); HGB 10.3 g/dl (12.5-16.0); LYMPHOCYTE 20.9 % (15-48); MCH 28.9 pg (25.0-31.0); MCHC 30.5 g/dL (32.0-36.0); MCV 94.7 fL (78.0-100.0); MPV 10.5 fL (6.0-9.5); NEUTROPHIL 64.7 % (41-80); NRBC 0; PLT 136 K/uL (150-400); RBC 3.57 M/uL (4.20-5.40); RDW 14.4 % (11.5-14.0); WBC 6.3 K/uL (4.0-10.5)
[2021-01-04 06:49] LABS: ALBUMIN 3.2 g/dL (3.4-5.0); BILIRUBIN - TOTAL 0.6 mg/dL (0.2-1.0); BUN/CREAT RATIO (CALC) 13.6 RATIO; CREATININE 0.59 mg/dL (0.51-0.95); GLOBULIN (CALCULATION) 4.3 g/dL; POTASSIUM 4.6 mmol/L (3.5-5.1); TOTAL PROTEIN 7.5 g/dL (6.4-8.2)
[2021-01-04 06:58] LABS: LACTIC ACID 2.1 mmol/L (0.4-1.9)
[2021-01-04 08:19] LABS: BILIRUBIN NEGATIVE (NEGATIVE); BLOOD NEGATIVE Ery/uL (NEGATIVE); CLARITY CLEAR (CLEAR); COLOR YELLOW (YELLOW); GLUCOSE (U) 3+ mg/dL (NORMAL); LEUKOCYTES NEGATIVE Leu/uL (NEGATIVE); NITRITE NEGATIVE (NEGATIVE); PROTEIN NEGATIVE (NEGATIVE); SPECIFIC GRAVITY 1.015 (1.001-1.030); UROBILINOGEN 0.2 mg/dL (0.2-1.0)
[2021-01-04 08:21] LABS: AMPHETAMINES NEGATIVE (NEGATIVE); BARBITURATES NEGATIVE (NEGATIVE); ECSTASY (MDMA) NEGATIVE (NEGATIVE); MARIJUANA (THC) NEGATIVE (NEGATIVE); METHADONE NEGATIVE (NEGATIVE); OPIATES NEGATIVE (NEGATIVE); OXYCODONE NEGATIVE (NEGATIVE)
[2021-01-04] MEDS ORDERED: HUMALOG 75100 UNIT/M SC (11:57)
[2021-01-05 08:17] LABS: BASOPHIL 0.5 % (0-2); HCT 30.9 % (37.0-47.0); HGB 9.4 g/dl (12.5-16.0); LYMPHOCYTE 27.6 % (15-48); MCHC 30.4 g/dL (32.0-36.0); MCV 95.4 fL (78.0-100.0); MONOCYTE 10.3 % (0-12); MPV 9.8 fL (6.0-9.5); NEUTROPHIL 52.3 % (41-80); NRBC 0; PLT 105 K/uL (150-400); RBC 3.24 M/uL (4.20-5.40); RDW 14.2 % (11.5-14.0); WBC 3.8 K/uL (4.0-10.5)
[2021-01-05 08:29] LABS: ALBUMIN 2.7 g/dL (3.4-5.0); BILIRUBIN - TOTAL 0.4 mg/dL (0.2-1.0); BUN/CREAT RATIO (CALC) 8.7 RATIO; CREATININE 0.46 mg/dL (0.51-0.95); GLOBULIN (CALCULATION) 3.9 g/dL; POTASSIUM 4.6 mmol/L (3.5-5.1); TOTAL PROTEIN 6.6 g/dL (6.4-8.2)
[2021-01-05 13:47] LABS: FOLIC ACID (SERUM) 14.4 ng/mL (8.6-58.9)
[2021-01-06 06:00] LABS: BASOPHIL 0.6 % (0-2); EOSINOPHIL 11.1 % (0-5); HCT 31.2 % (37.0-47.0); HGB 9.6 g/dl (12.5-16.0); LYMPHOCYTE 32.8 % (15-48); MCH 29.1 pg (25.0-31.0); MCHC 30.8 g/dL (32.0-36.0); MCV 94.5 fL (78.0-100.0); MONOCYTE 11.7 % (0-12); MPV 9.7 fL (6.0-9.5); NEUTROPHIL 43.2 % (41-80); NRBC 0; PLT 108 K/uL (150-400); RDW 13.8 % (11.5-14.0); WBC 3.5 K/uL (4.0-10.5)
[2021-01-06 06:15] LABS: BUN/CREAT RATIO (CALC) 4.3 RATIO; CREATININE 0.46 mg/dL (0.51-0.95); MAGNESIUM 1.2 mg/dL (1.8-2.4); POTASSIUM 4.8 mmol/L (3.5-5.1)
[2021-01-07 06:14] LABS: BASOPHIL 0.6 % (0-2); EOSINOPHIL 13.3 % (0-5); HCT 32.5 % (37.0-47.0); HGB 9.8 g/dl (12.5-16.0); LYMPHOCYTE 40.2 % (15-48); MCH 28.4 pg (25.0-31.0); MCHC 30.2 g/dL (32.0-36.0); MCV 94.2 fL (78.0-100.0); MONOCYTE 13.3 % (0-12); MPV 9.8 fL (6.0-9.5); NRBC 0; PLT 127 K/uL (150-400); RBC 3.45 M/uL (4.20-5.40); RDW 13.9 % (11.5-14.0); WBC 3.2 K/uL (4.0-10.5)
[2021-01-07 07:04] LABS: ALBUMIN 2.7 g/dL (3.4-5.0); BILIRUBIN - TOTAL 0.2 mg/dL (0.2-1.0); BUN/CREAT RATIO (CALC) 4.3 RATIO; CREATININE 0.47 mg/dL (0.51-0.95); GLOBULIN (CALCULATION) 3.5 g/dL; MAGNESIUM 1.2 mg/dL (1.8-2.4); PHOSPHORUS 4.3 mg/dL (2.6-4.7); POTASSIUM 4.1 mmol/L (3.5-5.1); TOTAL PROTEIN 6.2 g/dL (6.4-8.2)
== END 2021-01-07 15:25 | disposition home health service (06) ==
LOC: FER 05:30 → FMS 10:32
PROVIDERS: Emergency Medicine; Internal Medicine; ADMIT Internal Medicine
DX: E10.43 Type 1 diabetes mellitus with diabetic autonomic (poly)neuropathy (principal); K31.84 Gastroparesis; K75.0 Abscess of liver; R93.5 Abnormal findings on diagnostic imaging of other abdominal regions, including retroperitoneum; R91.8 Other nonspecific abnormal finding of lung field; D50.9 Iron deficiency anemia, unspecified; D3A.092 Benign carcinoid tumor of the stomach; E83.42 Hypomagnesemia; D69.6 Thrombocytopenia, unspecified; R16.0 Hepatomegaly, not elsewhere classified; M79.7 Fibromyalgia; I10 Essential (primary) hypertension; E78.5 Hyperlipidemia, unspecified; Z87.891 Personal history of nicotine dependence; Z79.2 Long term (current) use of antibiotics; Z79.84 Long term (current) use of oral hypoglycemic drugs; Z79.899 Other long term (current) drug therapy; Z88.4 Allergy status to anesthetic agent; Z88.8 Allergy status to other drugs, medicaments and biological substances; Z20.822 Contact with and (suspected) exposure to COVID-19
CPT/HCPCS: 36415; 71250; 74170; 80048; 80053; 80305; 81003; 82607; 82746; 82962; 83540; 83550; 83605; 83690; 83735; 84100; 85025; 87040; 87077; G0378; J0696; J1170; J1450; J2405; J2543; J2550; J2916; J3475; J3480; J7030; Q9967; U0002

== ENCOUNTER → 2021-03-09 | Day surgery (SDC) | payer MEDICARE, OTHER ==
[~2021-03-09] VITALS: Ht 160 cm; Wt 70.8 kg
[~2021-03-09] MED LIST changes: +HUMALOG 75100 UNIT/M SC
== END | disposition home or self-care (01) ==
LOC: FAS 08:15
DX: Z12.11 Encounter for screening for malignant neoplasm of colon (principal); D12.5 Benign neoplasm of sigmoid colon; D12.8 Benign neoplasm of rectum; D3A.092 Benign carcinoid tumor of the stomach; K75.0 Abscess of liver; E11.43 Type 2 diabetes mellitus with diabetic autonomic (poly)neuropathy; K22.70 Barrett's esophagus without dysplasia; K31.84 Gastroparesis; K86.1 Other chronic pancreatitis; E78.00 Pure hypercholesterolemia, unspecified; Z87.891 Personal history of nicotine dependence; E87.6 Hypokalemia; K51.90 Ulcerative colitis, unspecified, without complications; K44.9 Diaphragmatic hernia without obstruction or gangrene; K64.8 Other hemorrhoids
CPT/HCPCS: J1642; J2250; J2704; J7120

== ENCOUNTER 2021-03-18 18:51 | Inpatient (IN) | payer MEDICARE, OTHER ==
[~2021-03-18] VITALS: Ht 160 cm; Wt 75.4 kg
[2021-03-18 22:32] LABS: BASOPHIL 0.8 % (0-2); EOSINOPHIL 1.3 % (0-5); HCT 39.5 % (37.0-47.0); HGB 12.8 g/dl (12.5-16.0); LYMPHOCYTE 40.8 % (15-48); MCH 28.6 pg (25.0-31.0); MCHC 32.4 g/dL (32.0-36.0); MCV 88.4 fL (78.0-100.0); MONOCYTE 7.8 % (0-12); MPV 9.7 fL (6.0-9.5); NEUTROPHIL 48.6 % (41-80); NRBC 0; PLT 199 K/uL (150-400); RBC 4.47 M/uL (4.20-5.40); RDW 12.2 % (11.5-14.0); WBC 7.6 K/uL (4.0-10.5)
[2021-03-18 22:54] LABS: ALBUMIN 3.6 g/dL (3.4-5.0); BILIRUBIN - TOTAL 0.2 mg/dL (0.2-1.0); BUN/CREAT RATIO (CALC) 26.9 RATIO; CREATININE 0.67 mg/dL (0.51-0.95); GLOBULIN (CALCULATION) 4.3 g/dL; POTASSIUM 4.3 mmol/L (3.5-5.1); TOTAL PROTEIN 7.9 g/dL (6.4-8.2)
[2021-03-18 22:59] LABS: LACTIC ACID 3.6 mmol/L (0.4-1.9)
[2021-03-19 07:18] LABS: HCT 36.9 % (37.0-47.0); HGB 11.7 g/dl (12.5-16.0); MCHC 31.7 g/dL (32.0-36.0); MCV 91.3 fL (78.0-100.0); MPV 9.9 fL (6.0-9.5); RBC 4.04 M/uL (4.20-5.40); RDW 12.4 % (11.5-14.0); WBC 6.7 K/uL (4.0-10.5)
[2021-03-19 07:29] LABS: PROTHROMBIN TIME 12.6 SECONDS (11.8-13.4); PTT 31.3 SECONDS (24.4-34.7)
[2021-03-19 07:42] LABS: ALBUMIN 3.2 g/dL (3.4-5.0); BILIRUBIN - TOTAL 0.2 mg/dL (0.2-1.0); BUN/CREAT RATIO (CALC) 25.8 RATIO; C-REACTIVE PROTEIN 3.1 mg/dL (<=0.90); CREATININE 0.62 mg/dL (0.51-0.95); GLOBULIN (CALCULATION) 3.8 g/dL; MAGNESIUM 1.9 mg/dL (1.8-2.4); PHOSPHORUS 3.9 mg/dL (2.6-4.7); POTASSIUM 4.7 mmol/L (3.5-5.1)
--- NOTE | 2021-03-20 13:43 | NUR ---
03/20/21 Ms. Hernandez and her son share a home together. She does not use any DME. She is not followed by . A referral was made to the Resource Order Make Up Clerk to arrange an appointment at [facility] gastroenterology [facility] per Dr. Auguste's request.
[2021-03-21 05:14] LABS: EOSINOPHIL 2.7 % (0-5); HCT 36.3 % (37.0-47.0); HGB 11.4 g/dl (12.5-16.0); LYMPHOCYTE 27.2 % (15-48); MCH 28.8 pg (25.0-31.0); MCHC 31.4 g/dL (32.0-36.0); MCV 91.7 fL (78.0-100.0); MONOCYTE 4.9 % (0-12); NEUTROPHIL 62.4 % (41-80); NRBC 0; PLT 137 K/uL (150-400); RBC 3.96 M/uL (4.20-5.40); RDW 11.9 % (11.5-14.0); WBC 7.1 K/uL (4.0-10.5)
[2021-03-21 06:18] LABS: CREATININE 0.5 mg/dL (0.51-0.95); MAGNESIUM 1.5 mg/dL (1.8-2.4); POTASSIUM 4.3 mmol/L (3.5-5.1)
--- NOTE | 2021-03-21 17:44 | NUR ---
MD NOTIFIED OF ELEVATED HR, PATIENT TAKES METOPROLOL AT HOME. WILL RESTART ON LOWER DOSE. PATIENT UNABLE TO TOLERATE CLEAR LIQUIDS, VOMITTED LUNCH AND DID NOT ATTEMPT DINNER. DR CARPENTER IN TO ASSESS PATIENT WELL THIS SHIFT
[2021-03-22 05:10] LABS: CREATININE 0.64 mg/dL (0.51-0.95); MAGNESIUM 1.7 mg/dL (1.8-2.4); POTASSIUM 4.5 mmol/L (3.5-5.1)
[2021-03-23] MEDS ORDERED: PROMETHEGA12.5 MG/SU PR (10:38)
--- NOTE | 2021-03-23 14:17 | NUR ---
03/23/21 An appointment was schedule with JOSE Gr, gastroenterology, for 05/11/21 at 10:[address] Schedule[address]. Auguste was informed.
== END 2021-03-23 13:35 | disposition home or self-care (01) | DRG 74 ==
LOC: FER 18:51 → FMS 03-19 02:57
PROVIDERS: Allergy & Immunology Allergy; Emergency Medicine Emergency Medical Services; Nurse Practitioner; ADMIT Internal Medicine
DX: E11.43 Type 2 diabetes mellitus with diabetic autonomic (poly)neuropathy (principal); K86.1 Other chronic pancreatitis; K31.1 Adult hypertrophic pyloric stenosis; K31.84 Gastroparesis; D3A.092 Benign carcinoid tumor of the stomach; R91.8 Other nonspecific abnormal finding of lung field; Z20.822 Contact with and (suspected) exposure to COVID-19; D52.9 Folate deficiency anemia, unspecified; D50.9 Iron deficiency anemia, unspecified; D51.3 Other dietary vitamin B12 deficiency anemia; E78.1 Pure hyperglyceridemia; E55.9 Vitamin D deficiency, unspecified; M79.7 Fibromyalgia; F32.9 Major depressive disorder, single episode, unspecified; Z88.8 Allergy status to other drugs, medicaments and biological substances; Z90.49 Acquired absence of other specified parts of digestive tract; Z98.890 Other specified postprocedural states; Z93.0 Tracheostomy status; Z87.891 Personal history of nicotine dependence; Z79.84 Long term (current) use of oral hypoglycemic drugs; Z79.4 Long term (current) use of insulin; Z79.899 Other long term (current) drug therapy; Z84.89 Family history of other specified conditions; Z80.41 Family history of malignant neoplasm of ovary
CPT/HCPCS: 36415; 80048; 80053; 82150; 82962; 83036; 83605; 83615; 83690; 83735; 84100; 84145; 85025; 85610; 85730; 86140; 87040; 93005; 94010; 94760; 94762; C9113; J1170; J1364; J1642; J1650; J1815; J2060; J2550; J3475; J7030; Q0162; Q9967; U0002

== ENCOUNTER 2021-04-04 20:42 | Emergency (ER) | payer MEDICARE, OTHER ==
[2021-04-04 22:29] LABS: BASOPHIL 0.7 % (0-2); EOSINOPHIL 2.8 % (0-5); HCT 36.7 % (37.0-47.0); HGB 11.7 g/dl (12.5-16.0); INR 0.88 (0.9-1.2); LYMPHOCYTE 43.2 % (15-48); MCHC 31.9 g/dL (32.0-36.0); MCV 91.1 fL (78.0-100.0); MONOCYTE 8.9 % (0-12); NRBC 0; PLT 186 K/uL (150-400); PROTHROMBIN TIME 11.4 SECONDS (11.8-13.4); PTT 36.7 SECONDS (24.4-34.7); RBC 4.03 M/uL (4.20-5.40); RDW 13.2 % (11.5-14.0)
[2021-04-04 22:30] LABS: BILIRUBIN NEGATIVE (NEGATIVE); BLOOD NEGATIVE Ery/uL (NEGATIVE); CLARITY CLEAR (CLEAR); COLOR YELLOW (YELLOW); GLUCOSE (U) NORMAL (NORMAL); LEUKOCYTES TRACE Leu/uL (NEGATIVE); NITRITE NEGATIVE (NEGATIVE); PROTEIN NEGATIVE (NEGATIVE); SPECIFIC GRAVITY <=1.005 (1.001-1.030); UROBILINOGEN 0.2 mg/dL (0.2-1.0)
[2021-04-04 22:35] LABS: URINARY WBC RARE
[2021-04-04 22:48] LABS: ALBUMIN 3.4 g/dL (3.4-5.0); ALKALINE PHOSHATASE 78 U/L (46-116); ALT 32 U/L (14-59); AST 23 U/L (15-37); BILIRUBIN - TOTAL 0.2 mg/dL (0.2-1.0); BUN 9 mg/dL (7-18); BUN/CREAT RATIO (CALC) 12.9 RATIO; CHLORIDE 102 mmol/L (98-107); CO2 (BICARBONATE) 27 mmol/L (21-32); GLOBULIN (CALCULATION) 3.8 g/dL; GLUCOSE 172 mg/dL (74-106); LIPASE 36 U/L (73-393); MAGNESIUM 1.6 mg/dL (1.8-2.4); POTASSIUM 4.3 mmol/L (3.5-5.1); TOTAL PROTEIN 7.2 g/dL (6.4-8.2)
[2021-04-05] MEDS ORDERED: PERCOCET 5-3251 EACH PO (02:00)
[2021-04-05] MEDS ORDERED: PHENERGAN25 M1 PO (02:00)
== END 2021-04-05 02:39 | disposition home or self-care (01) ==
LOC: FER 20:42
PROVIDERS: Emergency Medicine
DX: K86.1 Other chronic pancreatitis (principal); E11.9 Type 2 diabetes mellitus without complications; Z88.6 Allergy status to analgesic agent; Z88.8 Allergy status to other drugs, medicaments and biological substances
CPT/HCPCS: 36415; 80053; 81001; 83690; 83735; 84145; 84443; 85025; 85610; 85730; G0480; J1170; J2405; J2550; J7030; Q0169

== ENCOUNTER 2021-05-27 20:14 | Emergency (ER) | payer MEDICARE, OTHER ==
[~2021-05-27 20:14] MED LIST changes: +PERCOCET 5-3251 EACH PO
[2021-05-27 21:25] LABS: BASOPHIL 0.7 % (0-2); EOSINOPHIL 2.6 % (0-5); HCT 37.7 % (37.0-47.0); HGB 12.3 g/dl (12.5-16.0); LYMPHOCYTE 35.9 % (15-48); MCH 28.7 pg (25.0-31.0); MCHC 32.6 g/dL (32.0-36.0); MCV 88.1 fL (78.0-100.0); MONOCYTE 7.1 % (0-12); MPV 10.1 fL (6.0-9.5); NEUTROPHIL 52.8 % (41-80); NRBC 0; PLT 169 K/uL (150-400); RBC 4.28 M/uL (4.20-5.40); RDW 12.4 % (11.5-14.0); WBC 6.9 K/uL (4.0-10.5)
[2021-05-27 21:41] LABS: ALBUMIN 3.5 g/dL (3.4-5.0); ALKALINE PHOSHATASE 81 U/L (46-116); ALT 23 U/L (14-59); AST 18 U/L (15-37); BILIRUBIN - TOTAL 0.2 mg/dL (0.2-1.0); BUN 10 mg/dL (7-18); BUN/CREAT RATIO (CALC) 12.7 RATIO; CHLORIDE 99 mmol/L (98-107); CO2 (BICARBONATE) 24 mmol/L (21-32); CREATININE 0.79 mg/dL (0.51-0.95); GLOBULIN (CALCULATION) 4.1 g/dL; GLUCOSE 301 mg/dL (74-106); LIPASE 35 U/L (73-393); TOTAL PROTEIN 7.6 g/dL (6.4-8.2)
[2021-05-28] MEDS ORDERED: ONDANSETRON ODT4 MG PO (01:10)
[2021-05-28] MEDS ORDERED: NORCO 5-325 TA1 EACH PO (01:10)
== END 2021-05-28 02:44 | disposition home or self-care (01) ==
LOC: FER 20:14
PROVIDERS: Internal Medicine
DX: R10.13 Epigastric pain (principal); R11.2 Nausea with vomiting, unspecified; R91.1 Solitary pulmonary nodule; E11.9 Type 2 diabetes mellitus without complications; Z88.6 Allergy status to analgesic agent; Z79.4 Long term (current) use of insulin
CPT/HCPCS: 36415; 71250; 80053; 83690; 84145; 84484; 85025; 93005; J1170; J2550; J7030

== ENCOUNTER 2021-06-09 20:59 | Emergency (ER) | payer MEDICARE, OTHER ==
[~2021-06-09 20:59] MED LIST changes: +ONDANSETRON ODT4 MG PO
[2021-06-09 23:01] LABS: BASOPHIL 0.6 % (0-2); EOSINOPHIL 1.5 % (0-5); HGB 12.5 g/dl (12.5-16.0); LYMPHOCYTE 34.6 % (15-48); MCH 28.8 pg (25.0-31.0); MCHC 32.9 g/dL (32.0-36.0); MCV 87.6 fL (78.0-100.0); MONOCYTE 7.8 % (0-12); MPV 10.2 fL (6.0-9.5); NEUTROPHIL 54.9 % (41-80); NRBC 0; PLT 246 K/uL (150-400); RBC 4.34 M/uL (4.20-5.40); RDW 11.9 % (11.5-14.0); WBC 7.9 K/uL (4.0-10.5)
[2021-06-09 23:15] LABS: ALBUMIN 3.7 g/dL (3.4-5.0); BILIRUBIN - TOTAL 0.4 mg/dL (0.2-1.0); BUN/CREAT RATIO (CALC) 19.5 RATIO; CREATININE 0.87 mg/dL (0.51-0.95); GLOBULIN (CALCULATION) 4.1 g/dL; POTASSIUM 3.6 mmol/L (3.5-5.1); TOTAL PROTEIN 7.8 g/dL (6.4-8.2)
[2021-06-09 23:17] LABS: LACTIC ACID 3.7 mmol/L (0.4-1.9)
[2021-06-10 00:46] LABS: CORONAVIRUS 2019 SARS-COV-2 NEGATIVE (NEGATIVE); INFLUENZA A NAA NEGATIVE (NEGATIVE)
[2021-06-10 01:15] LABS: BILIRUBIN NEGATIVE (NEGATIVE); BLOOD 2+ Ery/uL (NEGATIVE); CLARITY CLEAR (CLEAR); COLOR YELLOW (YELLOW); GLUCOSE (U) 3+ mg/dL (NORMAL); LEUKOCYTES TRACE Leu/uL (NEGATIVE); NITRITE NEGATIVE (NEGATIVE); PROTEIN NEGATIVE (NEGATIVE); SPECIFIC GRAVITY <=1.005 (1.001-1.030); UROBILINOGEN 0.2 mg/dL (0.2-1.0); pH 5.5 (5.0-9.0)
[2021-06-10 01:24] LABS: BACTERIA 1+; SQUAMOUS EPITHELIAL CELLS 20-50; YEAST PRESENT
[2021-06-10] MEDS ORDERED: ONDANSETRON ODT4 MG PO (02:12)
[2021-06-10] MEDS ORDERED: NORCO 5-325 TA1 EACH PO (02:12)
[2021-06-10] MEDS ORDERED: AZITHROMYCIN250 MG PO (18:53)
== END 2021-06-10 03:17 | disposition home or self-care (01) ==
LOC: FER 20:59
PROVIDERS: Nurse Practitioner Family
DX: E11.65 Type 2 diabetes mellitus with hyperglycemia (principal); Z20.822 Contact with and (suspected) exposure to COVID-19; Z79.4 Long term (current) use of insulin; Z96.41 Presence of insulin pump (external) (internal); Z88.4 Allergy status to anesthetic agent; Z88.8 Allergy status to other drugs, medicaments and biological substances
CPT/HCPCS: 36415; 80053; 81001; 83605; 83690; 83880; 85025; J1170; J1642; J2405; J2550; J7030; Q9967; U0002

== ENCOUNTER 2021-06-10 14:37 | Emergency (ER) | payer MEDICARE, OTHER ==
[2021-06-10 16:23] LABS: ALBUMIN 3.6 g/dL (3.4-5.0); ALKALINE PHOSHATASE 76 U/L (46-116); ALT 23 U/L (14-59); AST 19 U/L (15-37); BILIRUBIN - TOTAL 0.3 mg/dL (0.2-1.0); BUN 10 mg/dL (7-18); BUN/CREAT RATIO (CALC) 15.2 RATIO; CHLORIDE 101 mmol/L (98-107); CO2 (BICARBONATE) 23 mmol/L (21-32); CREATININE 0.66 mg/dL (0.51-0.95); GLUCOSE 110 mg/dL (74-106); LIPASE 26 U/L (73-393); POTASSIUM 3.9 mmol/L (3.5-5.1); TOTAL PROTEIN 7.6 g/dL (6.4-8.2)
[2021-06-10 16:45] LABS: BASOPHIL 0.3 % (0-2); EOSINOPHIL 0.4 % (0-5); HCT 33.4 % (37.0-47.0); HGB 10.8 g/dl (12.5-16.0); LYMPHOCYTE 8.7 % (15-48); MCH 28.4 pg (25.0-31.0); MCHC 32.3 g/dL (32.0-36.0); MCV 87.9 fL (78.0-100.0); MONOCYTE 5.7 % (0-12); MPV 9.4 fL (6.0-9.5); NEUTROPHIL 84.4 % (41-80); NRBC 0; PLT 186 K/uL (150-400); RDW 12.1 % (11.5-14.0)
[2021-06-10 16:47] LABS: WBC 16.4 K/uL (4.0-10.5)
[2021-06-10 17:23] LABS: LACTIC ACID 0.5 mmol/L (0.4-1.9)
[2021-06-10 18:36] LABS: BILIRUBIN NEGATIVE (NEGATIVE); BLOOD TRACE-INTACT Ery/uL (NEGATIVE); CLARITY CLEAR (CLEAR); COLOR YELLOW (YELLOW); GLUCOSE (U) 3+ mg/dL (NORMAL); LEUKOCYTES NEGATIVE Leu/uL (NEGATIVE); NITRITE NEGATIVE (NEGATIVE); PROTEIN NEGATIVE (NEGATIVE); UROBILINOGEN 0.2 mg/dL (0.2-1.0); pH 6.5 (5.0-9.0)
[2021-06-10 18:44] LABS: BACTERIA TRACE; URINARY RBC RARE
[2021-06-10 18:45] LABS: TRANSITIONAL EPITHELIAL CELLS RARE
[2021-06-10] MEDS ORDERED: AZITHROMYCIN250 MG PO (18:53)
== END 2021-06-10 19:50 | disposition home or self-care (01) ==
LOC: FER 14:37
PROVIDERS: Emergency Medicine
DX: J18.9 Pneumonia, unspecified organism (principal); K59.00 Constipation, unspecified; E11.9 Type 2 diabetes mellitus without complications; I10 Essential (primary) hypertension; K21.9 Gastro-esophageal reflux disease without esophagitis; Z88.4 Allergy status to anesthetic agent; Z88.8 Allergy status to other drugs, medicaments and biological substances; Z20.822 Contact with and (suspected) exposure to COVID-19; Z79.4 Long term (current) use of insulin; Z96.41 Presence of insulin pump (external) (internal); Z79.899 Other long term (current) drug therapy
CPT/HCPCS: 36415; 74022; 80053; 81001; 83605; 83690; 84484; 85025; 87040; 87088; 93005; J1170; J1642; J2550; J7030

== ENCOUNTER 2021-08-05 19:41 | Inpatient (IN) | payer MEDICARE, OTHER ==
[~2021-08-05] VITALS: Ht 160 cm; Wt 79.4 kg
[~2021-08-05 19:41] MED LIST changes: +AZITHROMYCIN250 MG PO
[2021-08-05 20:17] LABS: BASOPHIL 0.7 % (0-2); EOSINOPHIL 2.7 % (0-5); HCT 37.3 % (37.0-47.0); HGB 12.2 g/dl (12.5-16.0); LYMPHOCYTE 37.2 % (15-48); MCH 28.8 pg (25.0-31.0); MCHC 32.7 g/dL (32.0-36.0); MCV 88.2 fL (78.0-100.0); MONOCYTE 6.9 % (0-12); MPV 9.8 fL (6.0-9.5); NEUTROPHIL 51.8 % (41-80); NRBC 0; PLT 169 K/uL (150-400); RBC 4.23 M/uL (4.20-5.40); RDW 12.7 % (11.5-14.0); WBC 8.5 K/uL (4.0-10.5)
[2021-08-05 20:38] LABS: ALBUMIN 3.8 g/dL (3.4-5.0); ALKALINE PHOSHATASE 61 U/L (46-116); ALT 27 U/L (14-59); AST 17 U/L (15-37); BILIRUBIN - TOTAL 0.3 mg/dL (0.2-1.0); BUN 11 mg/dL (7-18); BUN/CREAT RATIO (CALC) 15.1 RATIO; CHLORIDE 100 mmol/L (98-107); CO2 (BICARBONATE) 26 mmol/L (21-32); CREATININE 0.73 mg/dL (0.51-0.95); GLOBULIN (CALCULATION) 3.8 g/dL; GLUCOSE 122 mg/dL (74-106); LIPASE 34 U/L (73-393); POTASSIUM 4.1 mmol/L (3.5-5.1); TOTAL PROTEIN 7.6 g/dL (6.4-8.2)
[2021-08-05 20:39] LABS: ACETAMINOPHEN (TYLENOL) < 2.0 ug/mL (10.0-30.0)
[2021-08-05 20:51] LABS: BILIRUBIN NEGATIVE (NEGATIVE); BLOOD NEGATIVE Ery/uL (NEGATIVE); CLARITY CLEAR (CLEAR); COLOR YELLOW (YELLOW); GLUCOSE (U) 3+ mg/dL (NORMAL); LEUKOCYTES TRACE Leu/uL (NEGATIVE); NITRITE NEGATIVE (NEGATIVE); PROTEIN NEGATIVE (NEGATIVE); UROBILINOGEN 0.2 mg/dL (0.2-1.0)
[2021-08-05 20:59] LABS: AMPHETAMINES NEGATIVE (NEGATIVE); BARBITURATES NEGATIVE (NEGATIVE); ECSTASY (MDMA) NEGATIVE (NEGATIVE); MARIJUANA (THC) NEGATIVE (NEGATIVE); METHADONE NEGATIVE (NEGATIVE); OPIATES NEGATIVE (NEGATIVE); OXYCODONE NEGATIVE (NEGATIVE)
[2021-08-05 21:02] LABS: YEAST PRESENT
[2021-08-05 21:12] LABS: CORONAVIRUS 2019 SARS-COV-2 NEGATIVE (NEGATIVE); INFLUENZA A NAA NEGATIVE (NEGATIVE)
[2021-08-06] MEDS ORDERED: ATORVASTATIN CA40 MG PO (00:08)
[2021-08-06] MEDS ORDERED: LIPITOR40 MG PO (00:08)
[2021-08-06] MEDS ORDERED: NEXIUM 40MG CAP40 MG PO (00:09)
[2021-08-06] MEDS ORDERED: NEURONTIN400 MG PO (00:09)
[2021-08-06 05:58] LABS: BASOPHIL 0.4 % (0-2); EOSINOPHIL 1.4 % (0-5); HCT 35.7 % (37.0-47.0); HGB 11.3 g/dl (12.5-16.0); LYMPHOCYTE 11.9 % (15-48); MCH 28.5 pg (25.0-31.0); MCHC 31.7 g/dL (32.0-36.0); MCV 89.9 fL (78.0-100.0); MONOCYTE 7.6 % (0-12); MPV 9.8 fL (6.0-9.5); NEUTROPHIL 78.1 % (41-80); NRBC 0; PLT 158 K/uL (150-400); RBC 3.97 M/uL (4.20-5.40); RDW 12.8 % (11.5-14.0); WBC 11.9 K/uL (4.0-10.5)
[2021-08-06 06:15] LABS: ALBUMIN 3.4 g/dL (3.4-5.0); BILIRUBIN - TOTAL 0.4 mg/dL (0.2-1.0); BUN/CREAT RATIO (CALC) 16.1 RATIO; CREATININE 0.87 mg/dL (0.51-0.95); GLOBULIN (CALCULATION) 4.1 g/dL; TOTAL PROTEIN 7.5 g/dL (6.4-8.2)
[2021-08-07 05:20] LABS: BASOPHIL 0.6 % (0-2); EOSINOPHIL 2.9 % (0-5); HCT 32.1 % (37.0-47.0); LYMPHOCYTE 31.5 % (15-48); MCH 28.1 pg (25.0-31.0); MCHC 31.2 g/dL (32.0-36.0); MCV 90.2 fL (78.0-100.0); MONOCYTE 8.9 % (0-12); MPV 9.8 fL (6.0-9.5); NEUTROPHIL 55.1 % (41-80); NRBC 0; PLT 128 K/uL (150-400); RBC 3.56 M/uL (4.20-5.40); RDW 12.8 % (11.5-14.0); WBC 6.3 K/uL (4.0-10.5)
[2021-08-07 05:39] LABS: ALBUMIN 3.1 g/dL (3.4-5.0); BILIRUBIN - TOTAL 0.9 mg/dL (0.2-1.0); BUN/CREAT RATIO (CALC) 21.1 RATIO; CREATININE 0.76 mg/dL (0.51-0.95); GLOBULIN (CALCULATION) 3.7 g/dL; POTASSIUM 4.4 mmol/L (3.5-5.1); TOTAL PROTEIN 6.8 g/dL (6.4-8.2)
[2021-08-09 05:42] LABS: BASOPHIL 0.6 % (0-2); EOSINOPHIL 1.5 % (0-5); HCT 33.9 % (37.0-47.0); HGB 10.7 g/dl (12.5-16.0); LYMPHOCYTE 17.5 % (15-48); MCH 28.5 pg (25.0-31.0); MCHC 31.6 g/dL (32.0-36.0); MCV 90.2 fL (78.0-100.0); MONOCYTE 8.3 % (0-12); MPV 9.5 fL (6.0-9.5); NEUTROPHIL 69.3 % (41-80); NRBC 0; PLT 157 K/uL (150-400); RBC 3.76 M/uL (4.20-5.40); WBC 8.7 K/uL (4.0-10.5)
[2021-08-09 06:00] LABS: ALBUMIN 3.5 g/dL (3.4-5.0); BILIRUBIN - TOTAL 0.5 mg/dL (0.2-1.0); BUN/CREAT RATIO (CALC) 23.4 RATIO; CREATININE 0.64 mg/dL (0.51-0.95); GLOBULIN (CALCULATION) 4.3 g/dL; POTASSIUM 4.3 mmol/L (3.5-5.1); TOTAL PROTEIN 7.8 g/dL (6.4-8.2)
[2021-08-10 09:26] LABS: BUN/CREAT RATIO (CALC) 19.2 RATIO; CREATININE 0.52 mg/dL (0.51-0.95); POTASSIUM 3.5 mmol/L (3.5-5.1)
[2021-08-10] MEDS ORDERED: REGLAN10 MG PO (09:57)
[2021-08-10] MEDS ORDERED: LANTUS SOL100 UNIT/1 SC (10:00)
== END 2021-08-10 13:45 | disposition home or self-care (01) | DRG 74 ==
LOC: FER 19:41 → FMS 22:54
PROVIDERS: Internal Medicine; Nurse Practitioner; ADMIT Allergy & Immunology Allergy
DX: E11.43 Type 2 diabetes mellitus with diabetic autonomic (poly)neuropathy (principal); K86.1 Other chronic pancreatitis; Z20.822 Contact with and (suspected) exposure to COVID-19; K31.84 Gastroparesis; D3A.092 Benign carcinoid tumor of the stomach; I10 Essential (primary) hypertension; F32.A Depression, unspecified; M79.7 Fibromyalgia; E55.9 Vitamin D deficiency, unspecified; Z90.49 Acquired absence of other specified parts of digestive tract; Z79.899 Other long term (current) drug therapy; Z79.84 Long term (current) use of oral hypoglycemic drugs; Z88.8 Allergy status to other drugs, medicaments and biological substances
CPT/HCPCS: 36415; 80048; 80053; 80305; 81001; 83036; 83690; 84484; 85025; 93005; 94760; 94762; C9113; G0378; G0480; J0780; J1170; J1364; J1642; J1650; J1790; J1815; J2405; J2550; J7120; U0002

== ENCOUNTER 2021-09-01 19:47 | Emergency (ER) | payer MEDICARE, OTHER ==
[~2021-09-01 19:47] MED LIST changes: +ATORVASTATIN CA40 MG PO; +LANTUS SOL100 UNIT/1 SC; +LIPITOR40 MG PO; +NEURONTIN400 MG PO; +NEXIUM 40MG CAP40 MG PO; +REGLAN10 MG PO
[2021-09-01 20:15] LABS: BASOPHIL 0.8 % (0-2); EOSINOPHIL 3.5 % (0-5); HCT 37.6 % (37.0-47.0); LYMPHOCYTE 38.9 % (15-48); MCH 28.6 pg (25.0-31.0); MCHC 31.9 g/dL (32.0-36.0); MCV 89.5 fL (78.0-100.0); MPV 9.8 fL (6.0-9.5); NEUTROPHIL 49.4 % (41-80); NRBC 0; PLT 170 K/uL (150-400); RDW 13.2 % (11.5-14.0); WBC 7.3 K/uL (4.0-10.5)
[2021-09-01 20:38] LABS: LACTIC ACID 2.8 mmol/L (0.4-1.9)
[2021-09-01 20:47] LABS: ALBUMIN 3.7 g/dL (3.4-5.0); BILIRUBIN - TOTAL 0.3 mg/dL (0.2-1.0); BUN/CREAT RATIO (CALC) 13.6 RATIO; CREATININE 0.88 mg/dL (0.51-0.95); POTASSIUM 4.2 mmol/L (3.5-5.1); TOTAL PROTEIN 7.7 g/dL (6.4-8.2)
[2021-09-01 21:23] LABS: CORONAVIRUS 2019 SARS-COV-2 NEGATIVE (NEGATIVE); INFLUENZA A NAA NEGATIVE (NEGATIVE)
[2021-09-01 23:16] LABS: BILIRUBIN NEGATIVE (NEGATIVE); BLOOD TRACE-INTACT Ery/uL (NEGATIVE); CLARITY CLEAR (CLEAR); COLOR YELLOW (YELLOW); GLUCOSE (U) 3+ mg/dL (NORMAL); LEUKOCYTES NEGATIVE Leu/uL (NEGATIVE); NITRITE NEGATIVE (NEGATIVE); PROTEIN NEGATIVE (NEGATIVE); SPECIFIC GRAVITY 1.015 (1.001-1.030); UROBILINOGEN 0.2 mg/dL (0.2-1.0); pH 5.5 (5.0-9.0)
[2021-09-01 23:27] LABS: AMORPHOUS URATES CRYSTALS MODERATE; BACTERIA TRACE
== END 2021-09-02 01:45 | disposition home or self-care (01) ==
LOC: FER 19:47
PROVIDERS: Emergency Medicine
DX: R10.13 Epigastric pain (principal); R11.2 Nausea with vomiting, unspecified; I10 Essential (primary) hypertension; E11.9 Type 2 diabetes mellitus without complications; Z88.6 Allergy status to analgesic agent; Z79.4 Long term (current) use of insulin; Z79.899 Other long term (current) drug therapy; Z20.822 Contact with and (suspected) exposure to COVID-19
CPT/HCPCS: 36415; 71275; 80053; 81001; 82150; 83605; 83690; 84145; 84484; 85025; 93005; J1170; J1364; J1642; J1790; J2405; J2543; J2550; J2765; J7030; J7050; Q9967; U0002

== ENCOUNTER 2021-10-11 19:47 | Emergency (ER) | payer MEDICARE, OTHER ==
[2021-10-11 20:19] LABS: BASOPHIL 0.7 % (0-2); EOSINOPHIL 2.6 % (0-5); HCT 37.3 % (37.0-47.0); HGB 11.9 g/dl (12.5-16.0); MCH 28.1 pg (25.0-31.0); MCHC 31.9 g/dL (32.0-36.0); MONOCYTE 8.7 % (0-12); MPV 9.9 fL (6.0-9.5); NEUTROPHIL 56.6 % (41-80); NRBC 0; PLT 173 K/uL (150-400); RBC 4.24 M/uL (4.20-5.40); RDW 12.5 % (11.5-14.0); WBC 7.5 K/uL (4.0-10.5)
[2021-10-11 20:30] LABS: INR 0.99 (0.9-1.2); PROTHROMBIN TIME 12.5 SECONDS (11.8-13.4); PTT 30.3 SECONDS (24.4-34.7)
[2021-10-11 20:34] LABS: ALBUMIN 3.7 g/dL (3.4-5.0); BILIRUBIN - TOTAL 0.3 mg/dL (0.2-1.0); BUN/CREAT RATIO (CALC) 18.8 RATIO; CREATININE 0.8 mg/dL (0.51-0.95); GLOBULIN (CALCULATION) 4.1 g/dL; POTASSIUM 4.2 mmol/L (3.5-5.1); TOTAL PROTEIN 7.8 g/dL (6.4-8.2)
[2021-10-11 21:19] LABS: CORONAVIRUS 2019 SARS-COV-2 NEGATIVE (NEGATIVE); INFLUENZA A NAA NEGATIVE (NEGATIVE)
[2021-10-11] MEDS ORDERED: PHENERGAN25 M1 PO (23:12)
== END 2021-10-12 00:01 | disposition home or self-care (01) ==
LOC: FER 19:47
PROVIDERS: Internal Medicine
DX: B34.9 Viral infection, unspecified (principal); E11.9 Type 2 diabetes mellitus without complications; Z79.4 Long term (current) use of insulin; Z88.6 Allergy status to analgesic agent; Z88.8 Allergy status to other drugs, medicaments and biological substances; Z20.822 Contact with and (suspected) exposure to COVID-19
CPT/HCPCS: 36415; 80053; 83690; 84484; 85025; 85610; 85730; 93005; J1170; J1642; J2405; J2550; J7030; Q9967; U0002

== ENCOUNTER 2021-10-31 23:41 | Emergency (ER) | payer MEDICARE, OTHER ==
[2021-11-01 00:08] LABS: BASOPHIL 0.7 % (0-2); EOSINOPHIL 2.3 % (0-5); HCT 40.4 % (37.0-47.0); HGB 12.4 g/dl (12.5-16.0); LYMPHOCYTE 31.4 % (15-48); MCHC 30.7 g/dL (32.0-36.0); MCV 91.2 fL (78.0-100.0); MONOCYTE 7.1 % (0-12); NEUTROPHIL 57.9 % (41-80); NRBC 0; PLT 162 K/uL (150-400); RBC 4.43 M/uL (4.20-5.40); RDW 12.6 % (11.5-14.0)
[2021-11-01 00:34] LABS: ALBUMIN 3.6 g/dL (3.4-5.0); BILIRUBIN - TOTAL 0.2 mg/dL (0.2-1.0); BUN/CREAT RATIO (CALC) 19.2 RATIO; CREATININE 0.78 mg/dL (0.51-0.95); GLOBULIN (CALCULATION) 3.9 g/dL; POTASSIUM 4.3 mmol/L (3.5-5.1); TOTAL PROTEIN 7.5 g/dL (6.4-8.2)
== END 2021-11-01 02:06 | disposition home or self-care (01) ==
LOC: FER 23:41
PROVIDERS: Emergency Medicine
DX: R11.2 Nausea with vomiting, unspecified (principal); E11.9 Type 2 diabetes mellitus without complications; Z79.4 Long term (current) use of insulin; Z88.4 Allergy status to anesthetic agent
CPT/HCPCS: 36415; 80053; 83690; 84484; 85025; J1642; J1885; J2550; J7030

== ENCOUNTER 2021-12-19 21:46 | Emergency (ER) | payer MEDICARE, OTHER ==
[2021-12-19 22:48] LABS: BASOPHIL 0.5 % (0-2); HGB 10.8 g/dl (12.5-16.0); LYMPHOCYTE 37.9 % (15-48); MCHC 31.8 g/dL (32.0-36.0); MCV 88.1 fL (78.0-100.0); MONOCYTE 8.4 % (0-12); MPV 10.5 fL (6.0-9.5); NEUTROPHIL 49.4 % (41-80); NRBC 0; PLT 148 K/uL (150-400); RBC 3.86 M/uL (4.20-5.40); RDW 12.8 % (11.5-14.0); WBC 6.1 K/uL (4.0-10.5)
[2021-12-19 23:08] LABS: ALBUMIN 3.3 g/dL (3.4-5.0); BILIRUBIN - TOTAL 0.3 mg/dL (0.2-1.0); CREATININE 0.67 mg/dL (0.51-0.95); GLOBULIN (CALCULATION) 3.3 g/dL; MAGNESIUM 1.5 mg/dL (1.8-2.4); POTASSIUM 3.6 mmol/L (3.5-5.1); TOTAL PROTEIN 6.6 g/dL (6.4-8.2)
[2021-12-19 23:40] LABS: BILIRUBIN NEGATIVE (NEGATIVE); BLOOD NEGATIVE Ery/uL (NEGATIVE); CLARITY CLEAR (CLEAR); COLOR YELLOW (YELLOW); GLUCOSE (U) TRACE mg/dL (NORMAL); LEUKOCYTES 2+ Leu/uL (NEGATIVE); NITRITE NEGATIVE (NEGATIVE); PROTEIN NEGATIVE (NEGATIVE); SPECIFIC GRAVITY <=1.005 (1.001-1.030); UROBILINOGEN 0.2 mg/dL (0.2-1.0)
[2021-12-19 23:49] LABS: BACTERIA 2+; URINARY RBC RARE
[2021-12-19 23:50] LABS: BARBITURATES NEGATIVE (NEGATIVE); ECSTASY (MDMA) NEGATIVE (NEGATIVE); MARIJUANA (THC) NEGATIVE (NEGATIVE); METHADONE NEGATIVE (NEGATIVE); OPIATES NEGATIVE (NEGATIVE)
[2021-12-19 23:51] LABS: AMPHETAMINES NEGATIVE (NEGATIVE); OXYCODONE NEGATIVE (NEGATIVE)
[2021-12-20] MEDS ORDERED: PROMETHEGA12.5 MG/SU PR (05:42)
[2021-12-20] MEDS ORDERED: NORCO 5-325 TA1 EACH PO (05:42)
== END 2021-12-20 06:35 | disposition home or self-care (01) ==
LOC: FER 21:46
PROVIDERS: Emergency Medicine
DX: R10.13 Epigastric pain (principal); R07.89 Other chest pain; R11.2 Nausea with vomiting, unspecified; Z88.4 Allergy status to anesthetic agent; Z88.8 Allergy status to other drugs, medicaments and biological substances
CPT/HCPCS: 36415; 71260; 80053; 80305; 81001; 82550; 83690; 83735; 84145; 84484; 85025; 93005; J1170; J1642; J2550; J7030; Q9967

== ENCOUNTER 2022-01-05 22:20 | Emergency (ER) | payer MEDICARE, OTHER ==
[2022-01-05 23:32] LABS: HCT 33.3 % (37.0-47.0); HGB 10.5 g/dl (12.5-16.0); MCH 27.5 pg (25.0-31.0); MCHC 31.5 g/dL (32.0-36.0); MCV 87.2 fL (78.0-100.0); MPV 9.9 fL (6.0-9.5); RBC 3.82 M/uL (4.20-5.40); RDW 12.8 % (11.5-14.0); WBC 7.1 K/uL (4.0-10.5)
[2022-01-05 23:45] LABS: ALBUMIN 3.5 g/dL (3.4-5.0); BILIRUBIN - TOTAL 0.4 mg/dL (0.2-1.0); BUN/CREAT RATIO (CALC) 16.1 RATIO; CREATININE 0.62 mg/dL (0.51-0.95); GLOBULIN (CALCULATION) 3.4 g/dL; POTASSIUM 3.8 mmol/L (3.5-5.1); TOTAL PROTEIN 6.9 g/dL (6.4-8.2)
[2022-01-06 00:18] LABS: BILIRUBIN NEGATIVE (NEGATIVE); BLOOD NEGATIVE Ery/uL (NEGATIVE); CLARITY CLEAR (CLEAR); COLOR YELLOW (YELLOW); GLUCOSE (U) 3+ mg/dL (NORMAL); LEUKOCYTES TRACE Leu/uL (NEGATIVE); NITRITE NEGATIVE (NEGATIVE); PROTEIN NEGATIVE (NEGATIVE); UROBILINOGEN 0.2 mg/dL (0.2-1.0)
[2022-01-06] MEDS ORDERED: KEFLEX250 MG PO (00:23)
[2022-01-06 00:24] LABS: BACTERIA 1+
== END 2022-01-06 01:28 | disposition home or self-care (01) ==
LOC: FER 22:20
PROVIDERS: Emergency Medicine
DX: R10.13 Epigastric pain (principal); R11.2 Nausea with vomiting, unspecified; I10 Essential (primary) hypertension; E11.9 Type 2 diabetes mellitus without complications; Z88.4 Allergy status to anesthetic agent; Z88.8 Allergy status to other drugs, medicaments and biological substances
CPT/HCPCS: 36415; 80053; 81001; 83690; 87088; J1642; J1885; J2550; J7030